=== PATIENT | female | born 1960 | race Caucasian/White ===

== ENCOUNTER 2020-06-14 08:43 | Day surgery (SDC) | payer OTHER, SELFPAY ==
--- NOTE | 2020-06-13 15:30 | HP_ITS ---
DATE OF SERVICE: 06/14/2020 PLANNED DATE OF PROCEDURE: June 14, 2020. PREOPERATIVE DIAGNOSES: 1. Painful skin disease, left foot. 2. Hammertoe, left second toe. 3. Ganglion cyst, left foot. PLANNED PROCEDURES: 1. Excision of painful skin. 2. Hammertoe repair, left second toe. 3. Excision of ganglion cyst left foot. PLANNED ANESTHESIA: Local anesthesia. CHIEF COMPLAINT AND HISTORY OF PRESENT ILLNESS: Lisa Payan is a 60-year-old female, who relates history of painful ganglion cyst, hammertoe and skin of the left second toe and right 3rd toe. The left second toe is much more severe than the right foot. The pain is aggravated by shoe gear and walking activity. The condition has been present over the past several years and has progressively worsened. The patient has drained the fluid from the cysts both herself and also had a drain by another physician in the past. Unfortunately, the condition continues to recur despite conservative care of altered shoe gear and accommodative padding. The patient is now requesting surgical treatment. PAST MEDICAL HISTORY: Remarkable for hypertension, polyps of colon, cyst on right kidney, and history of skin cancer as well as asthma. CURRENT MEDICATIONS: Advair, acidophilus, Aczone, ibuprofen p.r.n., omeprazole, valsartan, hydrochlorothiazide. ALLERGIES: THE PATIENT RELATES NEGATIVE REACTION TO PERCOCET, DEMEROL, DIMETAPP, SUCCINYLCHOLINE. FAMILY HISTORY: Significant for hypertension, arthritis, CVA. SOCIAL HISTORY: The patient denies smoking, denies use of any recreational drugs. The patient does drink 1 to 2 cups of coffee per day. She relates minimal alcohol use. PODIATRIC PHYSICAL EXAMINATION: VASCULAR EXAM: The patient displays normal pulses, the DP and PT arteries bilateral with normal capillary refill time noted bilateral feet. NEUROLOGIC EXAM: Reveals pain on palpation, dorsum of left second toe, distal interphalangeal joint, and otherwise intact sensation. DERMATOLOGIC EXAM: Reveals painful skin lesion with underlying ganglion cyst/mucous cyst, dorsum of left second toe, distal interphalangeal joint. ORTHOPEDIC EXAM: Reveals hammertoe contracture, bilateral second through fifth toes. The patient was seen most recently in my office on June 08, 2020. Preoperative informed consent was obtained from the patient that day for her planned left foot surgery. MOJGAN Hernandez/CHOLO / [id number]
[2020-06-14 09:05] VITALS: BMI 27.8
[2020-06-14 09:09] VITALS: BP 130/86; PULSE 95; RESP 18; TEMP 36.4; O2SAT 99
--- NOTE | 2020-06-14 10:32 | MHC.SHP ---
Pre-Procedural Eval Section A The patient is an INPATIENT: No Changes since office visit: No Cold of Flu in the past 2 weeks, No New Medical Problems, No Changes in Medication and No Patient answered all questions The History & Physical has been completed within 30 days and I have reviewed it.: Yes Section B Chief Complaint: Toya Details of Present Illness: hammertoe left 3rd Relevant Family History (Specify if Yes): No Relevant Social History: None Present Medications: None Allergies: Allergies Allergy/AdvReac Type Severity Reaction Status Date / Time acetaminophen [From PERCOCET] Allergy Unknown VOMITING Unverified 04/26/20 19:00 meperidine [From DEMEROL] Allergy Unknown CARDIAC Unverified 04/26/20 19:00 ARREST morphine [MORPHINE] Allergy Unknown ITCHINESS Unverified 04/26/20 19:00 AND HIVES oxycodone [From PERCOCET] Allergy Unknown VOMITING Unverified 04/26/20 19:00 succinylcholine AdvReac Severe PARALYSIS Verified 06/14/20 09:18 brompheniramine AdvReac Mild Drowsy Verified 06/14/20 09:19 [From Dimetapp Cold-Allergy (PE)] phenylephrine AdvReac Mild Drowsy Verified 06/14/20 09:19 [From Dimetapp Cold-Allergy (PE)] Plan Diagnosis/Plan: Unchanged Patient has been examined and remains a candidate for the planned procedure
--- NOTE | 2020-06-14 11:17 | PM.OP ---
Brief Operative Note Date of procedure: 06/14/20 Pre-op diagnosis: hammertoe left second, ganglion cyst left foot and skin disease left foot Post-op diagnosis: same Procedure: hammertoe repair left second, excision of skin 1.8cm, and excision of ganglion cyst left foot Surgeon: Nigel Amezcua Anesthesia: local Estimated blood loss (mL): 0.5 Condition: stable
[2020-06-14 11:18] VITALS: BP 139/82; PULSE 84; RESP 18; TEMP 36.3; O2SAT 96
[2020-06-14 11:33] VITALS: BP 132/66; PULSE 79; RESP 16; TEMP 36.6; O2SAT 98
--- NOTE | 2020-06-14 12:08 | OP_ITS ---
SURGEON: Nigel Amezcua DPM PREOPERATIVE DIAGNOSIS: POSTOPERATIVE DIAGNOSIS: PROCEDURE PERFORMED: ESTIMATED BLOOD LOSS: COMPLICATIONS: ANESTHESIA: Consisted of local administration of a total of 3 mL of 2% lidocaine with epinephrine 1:200,000. ASSISTANTS: SPECIMENS: PREOPERATIVE DIAGNOSES: 1. Skin disease, left foot. 2. Hammertoe, left second toe. 3. Ganglion cyst, left foot. POSTOPERATIVE DIAGNOSES: 1. Skin disease, left foot. 2. Hammertoe, left second toe. 3. Ganglion cyst, left foot. PROCEDURES PERFORMED: 1. Excision of skin lesion, 1.8 cm. 2. Hammertoe repair, left second toe. 3. Excision of a ganglion cyst. BEAUTICIAN APPRENTICE SURGEON: Yoli Wallace DPM INTRODUCTION: The patient was brought to the operating room and placed on the operating table in supine position. After having been suitably anesthetized with local infiltrative anesthesia, the left lower extremity was then prepped and draped in usual sterile manner. Excision of skin as well as excision of ganglion cyst, left foot: Attention was directed to the dorsum of the left second toe, where two converging semi-elliptical incisions were placed transversely to excise diseased skin as well as a superficial mucous ganglion cyst, dorsum left second toe, distal interphalangeal joint. The incisions were deepened in same plane and the ellipse of skin was excised from the wound in toto. Hammertoe repair, left second toe: Attention was now directed to the dorsum of the left second toe distal interphalangeal joint, where a transverse incision was effected through the extensor tendon complex at the level of the distal interphalangeal joint. The extensor tendon was underscored and retracted. The hypertrophic head of middle phalanx was exposed from the wound and then excised utilizing power sagittal saw. The hypertrophic bone from the base of the middle phalanx and base of the distal phalanx was then resected utilizing bone cutting forceps. The wound was irrigated. The extensor tendon was coapted and maintained utilizing 3-0 Dexon. The skin margins were closed with 4-0 nylon. CONCLUSION: At the conclusion of these procedures, the operative site was dressed with sterile Xeroform, Betadine-soaked gauze. The surgical field was injected with 2 mL of Marcaine 0.5% plain and 1 mL of dexamethasone phosphate. The patient tolerated the surgery and anesthesia well and left the operating room via cart to the recovery room with vital signs stable. FINAL DISPOSITION: The patient is discharged to home with instructions for self-care and include the followin. To keep the dressings dry, clean, and intact. 2. To keep the left leg elevated with ice to the ankle. 3. Take all medications as prescribed. 4. To limit activity to minimum. 5. To always use surgical shoe when ambulating. 6. The patient has prescriptions for Keflex 500 mg, total number of 20, take one p.o. b.i.d.; ibuprofen 800 mg, take one p.o. t.i.d.; and lastly Diflucan 200 mg one daily for five days. MOJGAN Hernandez/CHOLO / [id number]
== END 2020-06-14 23:59 | disposition home or self-care (01) ==
PROVIDERS: PCP Family Medicine; Visit Provider Podiatrist
PROC: (CPT 28285; principal; 2020-06-14 10:10)
DX: L98.9 Disorder of the skin and subcutaneous tissue, unspecified (principal); M20.42 Other hammer toe(s) (acquired), left foot; M67.472 Ganglion, left ankle and foot; I10 Essential (primary) hypertension; J45.909 Unspecified asthma, uncomplicated; Z85.828 Personal history of other malignant neoplasm of skin; Z79.51 Long term (current) use of inhaled steroids; Z79.899 Other long term (current) drug therapy; Z88.8 Allergy status to other drugs, medicaments and biological substances
CPT/HCPCS: 28285; 28090; 11422; 88304; 88305; 88311; J1100

== ENCOUNTER 2024-07-26 09:27 | Outpatient (AMB) | payer OTHER, SELFPAY ==
--- NOTE | 2024-07-26 09:36 | A.OFFVIS_ITS ---
Vital Signs 07/26/24 09:37 Height 5 ft 3.5 in Weight 164 lb 14.492 oz BMI 28.8 BP 118/74 Blood Pressure Location Lt brachial Position Sitting Pulse 114 H Pulse Source Pulse Oximeter Pulse Oximetry (%) 96 Oxygen Delivery Method Room Air Intake Visit Reasons: Raynauds Intake Note: Patient presents follow up on Raynauds and arthritis today. Allergies metoclopramide [From Reglan] Allergy (Mild, Verified 07/26/24 09:40) unable to breathe acetaminophen [From PERCOCET] Allergy (Unknown, Unverified 04/26/20 19:00) VOMITING meperidine [From DEMEROL] Allergy (Unknown, Unverified 04/26/20 19:00) CARDIAC ARREST morphine [MORPHINE] Allergy (Unknown, Unverified 04/26/20 19:00) ITCHINESS AND HIVES oxycodone [From PERCOCET] Allergy (Unknown, Unverified 04/26/20 19:00) VOMITING succinylcholine Adverse Reaction (Severe, Verified 06/14/20 09:18) PARALYSIS brompheniramine [From Dimetapp Cold-Allergy (PE)] Adverse Reaction (Mild, Verified 06/14/20 09:19) Drowsy phenylephrine [From Dimetapp Cold-Allergy (PE)] Adverse Reaction (Mild, Verified 06/14/20 09:19) Drowsy HPI HPI Raynauds: Details: Raynaud's is currently controlled. She has not been out much. She has amlodipine at home if she needs to use it when Raynaud's is active. Right hand pain has gotten worse. She is having difficulty using her hand. [facility] Social History Second Hand Smoke Exposure: No Physical Exam Vital Signs: Last Vital Signs Pulse 114 H 07/26/24 09:37 BP 118/74 07/26/24 09:37 Pulse Ox 96 07/26/24 09:37 Oxygen Delivery Method Room Air 07/26/24 09:37 BMI result Body Mass Index 28.8 Const Other: General: Comfortable Skin: No lesions seen MSK: No discoloration of fingertips. Good capillary refill. Right CMC tenderness with palpation. Squaring of right CMC present. Office Procedures AMB Joint Injection/Aspiration Joint Injection/Aspiration Details: Right CMC joint Prep: site was prepped using aseptic technique Injected: 10 mg of, Kenalog, with 0.25 mL of and 1% plain lidocaine Procedure: The patient tolerated the procedure well Coding 19052 - Small Joint Procedure code (CPT) selection complete Office Meds Kenalog 40 mg/mL suspension for injection Performing Provider: Dashawn Ribeiro MD Performing Location: [facility] [place] [facility] Administered by: Dashawn Ribeiro MD on 07/26/24 21:40 Dose Route Admin Location Dispensed Lot Number Expiration Date [facility] Dim[employer] Supervisor 10 mg intra-articular 1 mL AP [id number] [employer] lidocaine (PF) 10 mg/mL (1 %) injection solution Performing Provider: Dashawn Ribeiro MD Performing Location: [facility] [place] [facility] Administered by: Dashawn Ribeiro MD on 07/26/24 21:40 Dose Route Admin Location Dispensed Lot Number Expiration Date [facility] [employer] Supervisor 2.5 mg Infiltration 2 mL [id number] [facility] Assessment & Plan Assessment & Plan (1) Arthritis of carpometacarpal (CMC) joint of right thumb: Comment: Right CMC pain is uncontrolled. Code(s): M18.11 - Unilateral primary osteoarthritis of first carpometacarpal joint, right hand Category: Medical Plan: Right CMC cortisone injection given [facility] Return to clinic in 3 months (2) Raynaud disease without gangrene: Comment: Controlled at this time with conservative management. Code(s): I73.00 - Raynaud's syndrome without gangrene Category: Medical Plan: Continue conservative management She will call office if she has a flare. She has amlodipine at home to use if Raynaud's becomes active. I will then need to send her prescription for maintenance treatment. Return to clinic in 3 months Orders: Orders AMB Joint Injection/Aspiration Today M18.11 - Unilateral primary osteoarthritis of first carpometacarpal joint, right hand Medications: New Kenalog (triamcinolone acetonide) 10 mg (0.25 mL) intra-articular ONCE 0.25 mL 0RF NS M18.11 - Unilateral primary osteoarthritis of first carpometacarpal joint, right hand lidocaine (PF) 2.5 mg (0.25 mL) Infiltration ONCE 0.25 mL 0RF M18.11 - Unilateral primary osteoarthritis of first carpometacarpal joint, right hand Coding Level of Care Code Est Pt Level 3 (24046) Complex EM visit Add On G2211 Diagnoses Arthritis of carpometacarpal (CMC) joint of right thumb M18.11 Raynaud disease without gangrene I73.00 CPT Codes Coding - - Small joint: - Small Joint ([id number])
[2024-07-26 09:37] VITALS: BP 118/74; PULSE 114; O2SAT 96; BMI 28.8
== END 2024-07-26 10:18 | disposition home or self-care (01) ==
PROVIDERS: PCP Family Medicine; Visit Provider Internal Medicine Rheumatology
DX: M18.11 Unilateral primary osteoarthritis of first carpometacarpal joint, right hand (principal); I73.00 Raynaud's syndrome without gangrene
CPT/HCPCS: 20600; 99213

== ENCOUNTER 2024-10-25 09:06 | Outpatient (REF) | payer OTHER, SELFPAY ==
--- NOTE | ~2024-10-25 | XR_ITS ---
EXAMINATION: XR FOOT, RIGHT CLINICAL INFORMATION: M79.673 - Pain in unspecified foot COMPARISON: None available. TECHNIQUE: AP, lateral, and oblique views of the right foot. FINDINGS: No acute cortical disruption or malalignment. No lytic or blastic lesions. No metallic or radiopaque foreign body. No subcutaneous emphysema. XR/XR foot RT min 3V IMPRESSION: No acute fracture or dislocation. Negative x-ray. Electronically signed by: Gab Cifuentes MD 10/25/2024 12:26 PM EDT
--- NOTE | ~2024-10-25 | XR_ITS ---
EXAMINATION: XR FOOT, LEFT CLINICAL INFORMATION: M79.673 - Pain in unspecified foot COMPARISON: None available. TECHNIQUE: AP, lateral, and oblique views of the left foot. FINDINGS: No acute cortical disruption or malalignment. No lytic or blastic lesions. No subcutaneous emphysema. No metallic or radiopaque foreign body. Small spur, calcaneus plantar surface. XR/XR foot LT min 3V IMPRESSION: No acute fracture or dislocation. Small spur, plantar calcaneus surface. Electronically signed by: Gab Cifuentes MD 10/25/2024 12:34 PM EDT
--- OUTSIDE RECORDS SUMMARY | 2024-10-25 13:58 | XMS_ITS | Encounter Summary ---
Author Organization [facility] Address [address] [place] [address] [place] [address] Phone Care Team Providers Care Metal Cut Off Saw Tender Name Role Phone Pilar Aviles MD Primary Care Provider Encounter Details Date Type Department Care Team (Late st Contact Info) Description 12/17/2017 Ancillary Orders [facility] Xray - [place] [address] [place] [phone] Jeet Kelly DO [address] [place] [address] Orthopedics & Sports Medicine, [place] [address] [email or web address] Left hip pain Social History Tobacco Use [...] thigh documented in this encounter Care Teams Metal Cut Off Saw Tender Relationship Specialty Start Date End Date Pilar Aviles MD [address] [place] [address] PCP - General 08/13/17 documented as of this encounter Additional Source Comments The information contained in this document represents components of the legal health record. It is not the complete legal health record.[facility]
--- OUTSIDE RECORDS SUMMARY | 2024-10-25 13:58 | XMS_ITS | Encounter Summary ---
Author Organization [facility] Address [address] [place] [address] [place] [address] Phone Care Team Providers Care Elevator Repair Mechanic Name Role Phone Pilar Aviles MD Primary Care Provider Encounter Details Date Type Department Care Team (Late st Contact Info) Description 12/17/2017 Ancillary Orders [facility] Orthopedics [facility] Sports Medicine [address] [place] [address] Jeet Kelly DO [address] [facility] [place] [address] Social History Tobacco Use Types Packs/Day Years Used Date Smoking Tobacco: Never Assessed Sex and Gender Information Value Date Recorded Sex Assigned at Not on file Gender Identity Not on file Sexual Orientation Not on file documented as of this encounter Plan of Treatment Not on file documented as of this encounter Visit Diagnoses Not on filedocumented in this encounter Care Teams Elevator Repair Mechanic Relationship Specialty Start Date End Date Pilar Aviles MD [address] [place] [address] PCP - General 08/13/17 documented as of this encounter Additional Source Comments The information contained in this document represents components of the legal health record. It is not the complete legal health record.[facility]
--- OUTSIDE RECORDS SUMMARY | 2024-10-25 13:59 | XMS_ITS | Encounter Summary ---
Author Organization [facility] Address [address] [place] [address] Phone Care Team Providers Care Spiritual Advisor Name Role Phone Pilar Aviles MD Primary Care Provider Encounter Details Date Type Department Care Team (Late st Contact Info) Description 11/04/2021 Ancillary Orders [facility],Outside Imaging [address] [place] [address] System, Provider Not In, [place] [address] Social History Tobacco Use Types Packs/Day Years [...] on filedocumented in this encounter Care Teams Spiritual Advisor Relationship Specialty Start Date End Date Pilar Aviles MD [address] [place] [address] PCP - General 08/13/17 documented as of this encounter Additional Source Comments The information contained in this document represents components of the legal health record. It is not the complete legal health record.[facility]
--- OUTSIDE RECORDS SUMMARY | 2024-10-25 13:59 | XMS_ITS | Encounter Summary ---
Author Organization [facility] Address [address] [place] [address] Phone Care Team Providers Care Daycare Director Name Role Phone Pilar Aviles MD Primary Care Provider Encounter Details Date Type Department Care Team (Late st Contact Info) Description 11/04/2021 Ancillary Orders [facility],Outside Imaging [address] [place] [address] System, Provider Not In, [place] [address] Social History Tobacco Use Types Packs/Day Years [...] on filedocumented in this encounter Care Teams Daycare Director Relationship Specialty Start Date End Date Pilar Aviles MD [address] [place] [address] PCP - General 08/13/17 documented as of this encounter Additional Source Comments The information contained in this document represents components of the legal health record. It is not the complete legal health record.[facility]
--- OUTSIDE RECORDS SUMMARY | 2024-10-25 13:59 | XMS_ITS | Clinical Summary ---
Author Organization [facility] Address [address] [place] [address] Phone Care Team Providers Care Crank Hand Name Role Phone Pilar Aviles MD Primary [...] 03/20/21 14:36:00 EDT, Inhaler, [id number], Partial fill upon patient request if the [...] this topic Medical Devices Implanted Type Area Discount Clerk Device Identifier Shelf Expiration Date Model / Serial / Lot [place] Suture 4.5mm Arthroscopy Reelx Stt Peek Ss Core Knotless Shapr Tip Expandable Bx/5ea - [id number] Implanted:Qty: 1 on 11/14/2021 by Jeet Kelly DO at [facility] Right: Shoulder [employer] 01/14/2023 [id number] / / [id number] Care Teams Crank Hand Relationship Specialty Start Date End Date Pilar Aviles MD [address] [place] [address] Blanca PCP - General 08/13/17 Additional Source Comments The information contained in this document represents components of the legal health record. It is not the complete legal health record.[facility]
--- OUTSIDE RECORDS SUMMARY | 2024-10-25 13:59 | XMS_ITS | Clinical Summary ---
Author Organization [facility] Address [address] [place] [address] Phone Care Team Providers Care Service Correspondent Name Role Phone Pilar Aviles MD Primary Care Provider [phone] Encounters Date Type Department Care Team Description 09/07/2024 Telephone Gastroenterology - [address] [phone] Kirsten Perez MA from Last 3 Months Surgical History Surgery Date Site/Laterality Comments HYSTERECTOMY PROCEDURE: HISTORICAL HYSTERECTOMY SECTION PROCEDURE: UT DELIVERY ONLY OTHER SURGICAL HISTORY Right PROCEDURE: ---- OTHER ----; COMMENT: hip OTHER SURGICAL HISTORY Left PROCEDURE: ---- OTHER ----; COMMENT: jaw replacement OTHER SURGICAL HISTORY Bilateral PROCEDURE: ---- OTHER ----; COMMENT: breast reconstruction OTHER SURGICAL HISTORY PROCEDURE: ARTHROSCOPY PROCEDURE NEC CHOLECYSTECTOMY PROCEDURE: UT LAPAROSCOPY SURG CHOLECYSTECTOMY Social History Tobacco Use [...] age to complete this topic Care Teams Service Correspondent Relationship Specialty Start Date End Date Pilar Aviles MD [address] [facility] [place] [address] PCP - General Family Medicine 04/14/19
--- OUTSIDE RECORDS SUMMARY | 2024-10-25 13:59 | XMS_ITS | Encounter Summary ---
Author Organization [facility] Address [address] [place] [address] Phone Care Team Providers Care Bursar Name Role Phone Pilar Aviles MD Primary Care Provider Encounter Details Date Type Department Care Team (Late st Contact Info) Description 11/14/2021 Procedure Pass OR Admitting Dept - Virtual Department [address] [place] [address] Social History Tobacco Use Types Packs/Day Years [...] on filedocumented in this encounter Care Teams Bursar Relationship Specialty Start Date End Date Pilar Aviles MD [address] [place] [address] PCP - General 08/13/17 documented as of this encounter Additional Source Comments The information contained in this document represents components of the legal health record. It is not the complete legal health record.[facility]
--- OUTSIDE RECORDS SUMMARY | 2024-10-25 13:59 | XMS_ITS | Data Portability ---
Author Organization [facility], [facility] Address [address] [place] [address] Assessment No assessment recorded. Plan of Treatment Reminders Order Date Submit Date Provider Last Modified By Organization Details Last Modified Time Details Appointments None record ed. Lab None record ed. Referral None record ed. Procedures None record ed. Surgeries None record ed. Imaging None record ed. Medication Orders None record ed. Patient TargetsNo targets recorded. Patient InstructionsNo instructions recorded. Reason for Referral None Reported. Results Created Date Observation Date Name Description Value Unit Range Abnormal Flag Note LastModifiedBy Organization Detail LastModifiedTime 04/08/2006/04/2023 imagi ng/di agnos tic resul t No observ ation record ed. [email or web address] Not Available 03/12 11:48:26 04/08/2006/04/2023 imagi ng/di agnos tic resul t No observ ation record ed. [email or web address] Not Available 03/12 11:48:27 Result Notes None recorded. Problems Name Problem SNOMED Code Status Onset Date Resolution Date Notes Provider Name and Address Organization Details Recorded Time Pain in right hip joint [id number] Active 2022 Status : 'A'; Not Available [facility] 11:14:08 Problem Notes None recorded. Procedures Surgical History None recorded. Imaging Results Imaging Date Name Status LastModified by [facility] Details LastModified Time 06/04/2023 imaging/diag nostic result completed Information not available 04/08/2024 11:48:26 06/04/2023 imaging/diag nostic result completed Information not available 04/08/2024 11:48:27 Procedure Notes None recorded. Medical Equipment None Reported. Allergies Allergen ID Allergen Name Allergen Category Reaction Reaction Severity Criticality Documentation Date Start Date Code Code System Note Provider Name and Address Organization Details Recorded Time 19599 Demerol medicatio n Not available Not available Not available 10/12/20232022 43425 1 RxNorm Not Available [facility] 13:52:07 88914 acetamino phen / oxycodone medicatio n Not available Not available Not available 10/12/20232022 30072 3 RxNorm Not Available [facility] 13:52:07 Medications Name Sig Start Date Stop Date Status Note LastModified by Organization Details LastModified Time amoxicillin 500 mg capsule TAKE 4 CAPSULES BY MOUTH 1 HOUR BEFORE PROCEDURE active Not Available Not Available No t Available ipratropium 0.5 mg-albutero l 3 mg (2.5 mg base)/3 mL nebulizatio n soln INHALE 3 ML VIA NEBULIZER FOUR TIMES DAILY FOR 7 DAYS active Not Available Not Available No t Available albuterol sulfate 2.5 mg/3 mL (0.083 %) solution for nebulizatio n INHALE 3ML VIA NEBULIZER EVERY 6 HOURS FOR UP TO 30 DAYS active Not Available Not Available No t Available azithromyci n 250 mg tablet 02/17 completed Not Available Not Available Not Available fluconazole 150 mg tablet TAKE 1 TABLET BY MOUTH 1 TIME active Not Available Not Available No t Available valacyclovi r 1 gram tablet TAKE 1 TABLET BY MOUTH THREE TIMES DAILY FOR 7 DAYS active Not Available Not Available No t Available phenazopyri dine 200 mg tablet TAKE 1 TABLET BY MOUTH TWICE DAILY FOR 3 DAYS 02/17 completed Not Available Not Available Not Available ondansetron HCl 4 mg tablet TAKE 1 TABLET BY MOUTH EVERY 8 HOURS FOR 14 DAYS 02/17 completed Not Available Not Available Not Available prednisone 20 mg tablet active Not Available Not Available Not Available betamethaso ne, augmented 0.05 % topical cream APPLY TOPICALLY TO THE AFFECTED AREA TWICE DAILY FOR 14 DAYS active Not Available Not Available No t Available doxycycline monohydrate 100 mg tablet TAKE 1 TABLET BY MOUTH TWICE DAILY FOR 7 DAYS active Not Available Not Available No t Available tramadol 50 mg tablet TAKE 1 TABLET BY MOUTH EVERY 8 HOURS 07/11 /2024 completed Not Available Not Available Not Available amoxicillin 500 mg tablet TAKE 1 TABLET BY MOUTH THREE TIMES DAILY FOR 10 DAYS 02/17 completed Not Available Not Available Not Available valsartan 80 mg-hydrochl orothiazide 12.5 mg tablet TAKE 1 TABLET BY MOUTH DAILY active Not Available Not Available No t Available alprazolam 0.5 mg tablet TAKE 1 TABLET BY MOUTH TWICE DAILY NEEDED FOR ANXIETY active Not Available Not Available No t Available hydromorpho ne 2 mg tablet TAKE 2 TABLETS BY MOUTH EVERY 4 HOURS NEEDED FOR PAIN active Not Available Not Available No t Available cephalexin 500 mg capsule TAKE 1 CAPSULE BY MOUTH THREE TIMES DAILY FOR 7 DAYS active Not Available Not Available No t Available tobramycin 0.3 % eye drops INSTILL 1 DROP IN BOTH EYES FOUR TIMES DAILY FOR 7 DAYS 02/17 completed Not Available Not Available Not Available albuterol sulfate HFA 90 mcg/actuati on aerosol inhaler INHALE 2 PUFFS BY MOUTH EVERY 4 HOURS NEEDED active Not Available Not Available No t Available dicyclomine 10 mg capsule TAKE 1 CAPSULE BY MOUTH FOUR TIMES DAILY NEEDED FOR ABDOMINAL DISCOMFOR T active Not Available Not Available No t Available amoxicillin 875 mg-potassiu m clavulanate 125 mg tablet TAKE 1 TABLET BY MOUTH EVERY 12 HOURS FOR 7 DAYS active Not Available Not Available No t Available valsartan 160 mg-hydrochl orothiazide 25 mg tablet TAKE 1 TABLET BY MOUTH DAILY. REPLACES AMLODIPIN E 02/17 completed Not Available Not Available Not Available amoxicillin -potassium clavulanate 1,000 mg-62.5 mg tablet,ext. rel 12hr TAKE 2 TABLETS BY MOUTH TWICE DAILY FOR 10 DAYS 02/17 completed Not Available Not Available Not Available fentanyl 12 mcg/hr transdermal patch APPLY 1 PATCH TOPICALLY TO THE SKIN EVERY 72 HOURS active Not Available Not Available No t Available dapsone 5 % topical gel APPLY TOPICALLY TO FACE DAILY FOR ACNE active Not Available Not Available No t Available Eliquis 2.5 mg tablet TAKE 1 TABLET BY MOUTH TWO TIMES A DAY 02/17 completed Not Available Not Available Not Available potassium chloride ER 20 mEq tablet,exte nded release TAKE 1 TABLET BY MOUTH TWICE DAILY active Not Available Not Available No t Available Wixela Inhub 250 mcg-50 mcg/dose powder for inhalation active Not Available Not Available N ot Available Vitals Date Recorded Body height Body mass index (BMI) Body weight Provider Name and Address Organization Details Last Updated DateTime 02/18/2024 154.94 cm 30.2 kg/m2 33135.78 g Jevon Scott [place] [facility] 02/18/2024 15:48:26 Social History None recorded. Functional Status None recorded. Mental Status None recorded. Family History Nothing Reported. Medical History No medical history recorded. Gynecological HistoryNo gynecological history recorded. Obstetrics History GPAL:G 0 P 0 0 0 0 Past Encounters Encounter ID Performer Location Encounter Start Date Encounter Closed Date Diagnosis/Indication Diagnosis SNOMED-CT Code Diagnosis ICD10 Code Diagnosis Note [id number] KAROL Leyva [address] [place] [address] 02/18/2024 15:36:43 03/09/2024 12:51:00 Hip joint prosthesis present [id number] Z96.641 Thigh pain 96408566 M79. 651 Health Concerns Section Related Observation LastModified by Organization Detai ls LastModified Time None Recorded Concern Status LastModified by Organization Details LastModified Time None Recorded Advance Directives Directive None Recorded Payers Encounter Date Sequence Insurance Name Policy Number Policy Graves Covered Member ID Graves Member ID Guarantor Name 02/18/2024 1 [facility] [id number] Lisa Payan [id number] Lisa Payan Notes Date Note Type Note Provider Name and Address Organization Details Recorded Time 02/18/2024 text/html I am seeing the patient today under the supervision of Dr. Ruvalcaba who was available but who did not see the patient. HPI: presents to the office today for a recheck of her right hip. She is approximately 1 year status post right anterior total hip arthroplasty. She developed an atraumatic onset of severe burning pain in the right thigh last Thursday. When her symptoms increased over the weekend she went to the emergency department. While there she had a CT scan and Doppler ultrasound performed. Both of these scans were negative for acute pathology. She denies increased pain with weightbearing activities. There is no instability of the hip joint. She went to the bathroom here at the office prior to her appointment and noticed that she now has a rash on her thigh. She believes she may have shingles. PMH/PSH/MEDS/ALL/FMH/S OC HX/ROS are reviewed in detail per my medical intake sheet. General Exam: Vital signs are as noted below Mental status: Alert and lucid. Normal insight, affect and grooming. 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 No spasticity or clonus noted. EXAMINATION: The patient is well appearing and in no apparent distress. Alert and oriented x3. Gait is symmetric. {{Right* Left}} hip reveals a surgical scar, otherwise no obvious deformity upon inspection. No edema, erythema, ecchymosis. There is a faint raised red rash developing over the anterior thigh. No blisters. Neurovascularly intact. No localized tenderness. ROM is pain-free. Negative straight leg raise. No instability. 5/5 strength. Calf/leg compartments soft and compressible. CT scan performed of the right hip at [facility] this past weekend has been independently reviewed. Images reveal total hip arthroplasty components to be in good position. No evidence of loosening or an acute fracture. IMPRESSION: Right thigh pain, likely secondary to shingles, status post total hip arthroplasty PLAN: Clinically and radiographically the patient's hip replacement looks great today. She likely has an outbreak of shingles. She has had shingles in the past and indicates she has medication at home for this issue. I suggested that she call her PCP or go to an urgent care to confirm that she has shingles. If the burning pain in her thigh persists and she does not have shingles, she will call the office. All questions answered. Lisa Bernal PA-C [address], [place], [address], [facility] - [facility] 02/18/2024 22:42:23 OBGyn Episode No OBEpisode recorded.
== END 2024-10-25 09:07 | disposition home or self-care (01) ==
LOC: HO.HMGCX 09:06
PROVIDERS: PCP Family Medicine; Visit Provider Internal Medicine Rheumatology
DX: M79.671 Pain in right foot (principal); M79.672 Pain in left foot; M18.11 Unilateral primary osteoarthritis of first carpometacarpal joint, right hand; I73.00 Raynaud's syndrome without gangrene
CPT/HCPCS: 73630

== ENCOUNTER 2024-10-25 09:06 | Outpatient (AMB) | payer OTHER, SELFPAY ==
--- NOTE | 2024-10-25 09:11 | MHC.OFFVIS ---
Vital Signs 10/25/24 09:13 Height 5 ft 3.5 in Weight 161 lb 13.109 oz BMI 28.2 BP 120/74 Blood Pressure Location Lt brachial Position Sitting Pulse 104 H Pulse Source Pulse Oximeter Pulse Oximetry (%) 98 Oxygen Delivery Method Room Air Intake Visit Reasons: 3 mo follow up Intake Note: Patient presents follow up on Raynauds and arthritis today. Allergies metoclopramide [From Reglan] Allergy (Mild, Verified 10/25/24 09:11) unable to breathe acetaminophen [From PERCOCET] Allergy (Unknown, Verified 10/25/24 09:11) VOMITING meperidine [From DEMEROL] Allergy (Unknown, Verified 10/25/24 09:11) CARDIAC ARREST morphine [MORPHINE] Allergy (Unknown, Verified 10/25/24 09:11) ITCHINESS AND HIVES oxycodone [From PERCOCET] Allergy (Unknown, Verified 10/25/24 09:11) VOMITING succinylcholine Adverse Reaction (Severe, Verified 10/25/24 09:11) PARALYSIS brompheniramine [From Dimetapp Cold-Allergy (PE)] Adverse Reaction (Mild, Verified 10/25/24 09:11) Drowsy phenylephrine [From Dimetapp Cold-Allergy (PE)] Adverse Reaction (Mild, Verified 10/25/24 09:11) Drowsy HPI HPI 3 mo follow up: Details: Last thursday she had acute pain in left foot. She was unable to bear weight on her foot. She used arch support and diclofenac gel with benefit. She is unable to ambulate barefoot. She has to wear support. Pain has reduced in intensity. In November of 2020 she woke up with acute right foot pain and was unable to bear weight on her feet. She had x-rays that did not reveal stress fracture. On the same day of her x-ray she had an MRI of her right foot, which confirmed stress fracture. Subsequently, she had surgery. Denies active Raynaud's No new joint swelling. Denies pain in hands. PFSH Social History Second Hand Smoke Exposure: No Physical Exam Vital Signs: Last Vital Signs Pulse 104 H 10/25/24 09:13 BP 120/74 10/25/24 09:13 Pulse Ox 98 10/25/24 09:13 Oxygen Delivery Method Room Air 10/25/24 09:13 BMI result Body Mass Index 28.2 Const Other: General: Comfortable Skin: No lesions seen or discoloration of fingertips. No digital ulcers. MSK: Squaring of right CMC present without tenderness. No synovitis. Normal range of motion of upper extremities. Left MTP tenderness with increased intensity localized to 3rd MTP. No swelling or soft tissue edema. Assessment & Plan Assessment & Plan (1) Foot pain: Comment: Acute left foot pain with inability to bear weight on her foot initially, improved with arch support and diclofenac gel. In the past November of 2020 she had acute right foot pain with similar presentation eventually diagnosed with stress fracture. I will be ordering x-rays of bilateral feet with stat read. She had x-ray June 2023 of bilateral feet, which [facility]. Code(s): M79.673 - Pain in unspecified foot Category: Medical Qualifiers: Laterality: left Qualified Code(s): M79.672 - Pain in left foot Plan: Bilateral foot x-rays ordered I may consider MRI left foot to rule out stress fracture depending on x-ray results Continue foot support with insoles She will continue to use diclofenac gel 1% applied to affected area as needed Contraindication to oral NSAIDs due to prior history of GI perforation Return to clinic in 1 month (2) Arthritis of carpometacarpal (CMC) joint of right thumb: Comment: Right CMC pain is controlled with last cortisone injection Code(s): M18.11 - Unilateral primary osteoarthritis of first carpometacarpal joint, right hand Category: Medical Plan: Return to clinic in 3 month (3) Raynaud disease without gangrene: Comment: Controlled at this time with conservative management. Normotensive. Code(s): I73.00 - Raynaud's syndrome without gangrene Category: Medical Plan: Continue conservative management She will call office if she has a flare. She has amlodipine at home to use if Raynaud's becomes active. I will then need to send her prescription for maintenance treatment. Return to clinic in 3 months Orders: Orders XR foot RT min 3V Today M79.673 - Pain in unspecified foot XR foot LT min 3V Today M79.673 - Pain in unspecified foot Coding Level of Care Code Est Pt Level 4 (46028) Complex EM visit Add On G2211 Diagnoses Left foot pain M79.672 Laterality: left Arthritis of carpometacarpal (CMC) joint of right thumb M18.11 Raynaud disease without gangrene I73.00
[2024-10-25 09:13] VITALS: BP 120/74; PULSE 104; O2SAT 98; BMI 28.2
--- OUTSIDE RECORDS SUMMARY | 2024-10-25 09:45 | XMS_ITS | Encounter Summary ---
Author Organization [facility] Address [address] [place] [address] [place] [phone] Phone Care Team Providers Care Automatic Steel Tie Adjuster Name Role Phone Pilar Aviles MD Primary Care Provider Encounter Details Date Type Department Care Team (Late st Contact Info) Description 12/17/2017 Ancillary Orders [facility] [address] [place] [id number] Jeet Kelly DO 4 [facility] [place] [address] Social History Tobacco Use Types Packs/Day Years Used Date Smoking Tobacco: Never Assessed Sex and Gender Information Value Date Recorded Sex Assigned at Not on file Gender Identity Not on file Sexual Orientation Not on file documented as of this encounter Plan of Treatment Not on file documented as of this encounter Visit Diagnoses Not on filedocumented in this encounter Care Teams Automatic Steel Tie Adjuster Relationship Specialty Start Date End Date Pilar Aviles MD [address] [place] [id number] PCP - General 08/13/17 documented as of this encounter Additional Source Comments The information contained in this document represents components of the legal health record. It is not the complete legal health record.[facility]
--- OUTSIDE RECORDS SUMMARY | 2024-10-25 09:45 | XMS_ITS ---
Author Organization [facility] Address [address] [place] [address] Care Team Providers Care Web Ui Developer Name Role Phone Traci BURKETT Pilar Primary Care Provider Nigel Muñoz Unavailable [phone] Allergies Allergen (clinical drug ingredient) Drug/Non Drug Allergy documented on EMR Reaction Allergy Type Onset Date Status meperidine Demerol Unknown Drug Allergy Active Dimetapp ND Unknown Drug Allergy Activ e acetaminophen / oxycodone Percocet Unknown Drug Allergy Active succinylcholine Succinylcholine Chloride paralization Drug Allergy Active REASON FOR VISIT PCP 01/2023, Foot pain Medications Medication SIG (Take, Route, Frequency, Duration) Notes Start Date End Date Status Ibuprofen 800 MG 1 tablet with food or milk as needed Orally Three times a day 06/08/2020 Not-Taking Work Note . . . patient is disabled from work and may return to work on 07/16/20 07/03/2020 Active ProAir HFA prn Active Nitro-Bid 2 % as directed Transdermal aaply bid to toes for 30 days Not-Taking Keflex 500 MG 1 capsule Orally bid for 7 days 06/08/2020 Not-Taking Valsartan-hydroCHLOROt hiazide 160-25 MG 1 tablet Orally Once a day 10/13/2017 Active Walking Boot/Pneumatic As directed Wear Daily for Until further notice 05/01/2023 Active Omeprazole 20 MG 1 capsule Orally Once a day PRN 10/13/2017 Not-Taking Tretinoin 0.025 % APPLY SPARINGLY TO FACE QHS FOR ACNE AND PHOTOAGING External for 20 Active Multivitamin Active Aczone Active Night Splint AFO - L1930 as directed 05/01/2023 Active Acidophilus Not-Geoffrey ng Physical Therapy . . . 2-3x/week for 3-4 weeks 05/01/2023 Active Motrin PRN 10/13/2017 Not-Jeremy g amLODIPine Besylate winter only Active Align Prebiotic-Probiotic Active Advair HFA 250 Active Social History Tobacco Use: Social History Observation Description Date Details (start date - stop date) Never Smoker NA - NA Tobacco Use/Smoking Question Answer Notes Are you a: nonsmoker Additional Findings: Tobacco Non-User Current no n-smoker Alcohol Screen Question Answer Notes Did you have a drink contain ing alcohol in the past year? Yes How often did you have a dri nk containing alcohol in the past year? 2 to 4 times a month (2 points) Points 2 Interpretation Negative Tobacco use other than smoking: Question Answer Notes Are you an other tobacco user? No Vital Signs Height 5ft 4in in 05/01/2023 Weight 155 lbs 05/01/2023 BMI 26.6 kg/m2 05/01/2023 Procedures Procedure Date Ordered Date Performed Result Body Sit e 93309,[id number]-FRC TENDON SHEATH/LIGAMENT 05/01/2023 N/A Encounters Encounter Location Date Provider Diagnosis [facility] [address] [place] [id number] 05/01/2023 Nigel Amezcua Posterior tibial tendon dysfunction (PTTD) of left lower extremity M76.822 ; Posterior tibial tendon dysfunction (PTTD) of right lower extremity M76.821 ; Plantar fascial fibromatosis M72.2 ; Pain in left foot M79.672 and Pain in right foot M79.671 Assessments Encounter Date Diagnosis (ICD Code) Assessment Notes Treatment Notes Treatment Clinical Notes Section Notes 05/01/2023 Posterior tibial tendon dysfunction (PTTD) of left lower extremity (ICD-10 - M76.822) 05/01/2023 Posterior tibial tendon dysfunction (PTTD) of right lower extremity (ICD-10 - M76.821) 05/01/2023 Plantar fascial fibromatosis (ICD-10 - M72.2) Patient Educated with: HEEL CORD STRETCHES.pdf (HEEL CORD STRETCHES.pdf) Patient Educated with: RICE THERAPY.pdf (RICE THERAPY.pdf) Patient Educated with: INSTRUCTIONS FOR PROPER USE OF ORTHOTICS.pdf (INSTRUCTIONS FOR PROPER USE OF ORTHOTICS.pdf) 05/01/2023 Pain in left foot (ICD-10 - M79.672) 05/01/2023 Pain in right foot (ICD-10 - M79.671) Plan Of Treatment Medication Medication Name Sig Start Date Stop Date Notes Walking Boot/Pneumatic As directed Wear Daily for Until further notice 05/01/2023 Night Splint AFO - L1930 as directed 05/01/2023 Physical Therapy . . . 2-3x/week for 3-4 weeks 05/01/2023 Treatment Notes Assessment Notes Plantar fascial fibromatosis Patient Edu cated with: HEEL CORD STRETCHES.pdf (HEEL CORD STRETCHES.pdf) Patient Educated with: RICE THERAPY.pdf (RICE THERAPY.pdf) Patient Educated with: INSTRUCTIONS FOR PROPER USE OF ORTHOTICS.pdf (INSTRUCTIONS FOR PROPER USE OF ORTHOTICS.pdf) Pending Test Test Name Order Date X ray : Ankle, left 3V 05/01/2023 X ray : Foot, left 3V 05/01/2023 X ray : Foot, right 3V 05/01/2023 46863,[id number] TENDON SHEATH/LIGAMENT 0 05/01/2023 Next Appt Details Follow Up: 3 Weeks, Reason: Procedure Notes * Category Sub-Category Detail Notes Injection Tendon Sheath or Fascia 62733, J 0702 Injection - Plantar Fascia w/ mixture of Celestone Soluspan 3mg and 1cc 1 percent Xylocaine Plain anes. utilizing aseptic technique. The patient tolerated the procedure well. A dry sterile dressing was applied. Post injection instructions were dispensed, verbally discussed, and confirmed understood by the patient. I explained that a steroid and local anesthetic injections are administered to relieve pain and inflammation and thereby meant to improve function. I explained the possible complications including but not limited to signs/symptoms of steroid flare, infection, bruising, atrophy, discoloration of skin, change/deviation in toe position, and that additional injections may be necessary, Patient relates post-procedural pain assessment improved at ( 0-1) out of 10, LEFT foot--plm heel Progress Notes * Nanette MUNGUIAB:1960 (63 yo F)Acc No.[id number]:05/01/2023 Progress Note Patient:?Lisa Munguia Provider:?Nigel Amezcua DPM :1960???Age:63 Y???Sex:Female D ate:05/01/2023 Address:[address], [place], [id number] Pcp:Pilar Aviles MD Subjective: * Chief Complaints: * ???PCP 01/2023Foot pain * HPI: ???Foot Pain:?Nature:?sharp, aching, swelling, tenderness.?Location?B/L, L>R, Midfoot, Rearfoot and ankle.?Duration:?1 month.?Onset/Cause:?after rt hip sx.?Course:?worse.?Aggrevated:?any pressure, standing, walking.?Treatments:?change in shoes, innersoles.?Quality/Severity?9, scale 1-10.? * ROS:?General/Constitutional:?Nausea?denies, denies.?Vomiting?denies, denies.?Hunger Thirst?denies, denies.?Loss appetite?denies, denies.?Chills?denies, denies.?Fatigue?denies, denies.?Fever?denies, denies.?Night Sweats denies, denies.?Unexplained weight loss?denies, denies.?Ophthalmologic:?Blurred vision?denies.?Red eye?denies.?HEENTM:?Dentures?denies.?Dizziness?denies.?Glasses/contacts?denies.?Retinopathy?de nies.?Blurred/double vision?denies.?TMJ?denies.?Discharge/drainage?denies.?Implants?denies.?Hard of hearing denies.?Difficulty chewing/swallowing/speaking?denies.?Nose bleeds?denies.?Sore mouth?denies.?Swollen glands?denies.?Respiratory:?Patient denies?cough, hemoptysis, pain with inspiration, chest pain, shortness of breath at rest, shortness of breath with exertion.?On Oxygen?denies.?Pneumonia/pleurisy?denies.?Bronchitis?denies.?Emphysema?denies.&# 160;Coughing?denies.?Co ugh blood?denies.?Shortness of breath?denies.?Wheezing?denies.?Cardiovascular:?Patient denies?chest pain at rest, chest pain with exertion, palpitations.?Pacemaker?denies.?MVP?denies.?WPW?denies.?CHF?denies.?Heart attack?denies.?Septal defect?denies.?Rapid beat?denies.?Chest pain ?denies.?Atrial Fib.?denies.?Murmur/Palpitations?denies.?Gastrointestinal:?Hemorrhoids?denies.?Stomach/Abdominal pain?denies, denies.?Dark blood stool?denies, denies.?Irritable bowel ?denies, denies.?Constipation?denies, denies.?Diarrhea?denies, denies.?Vomiting?denies, denies.?Hematology:?Swelling?denies.?Bruising?denies.?Bleeding problem?denies, denies.?Genitourinary:?Blood urine?denies.?Frequent/Painfu/urination/bladder control?denies.?Kidney stones?denies.?Infection (UTI)?denies.?Nephropathy?denies.?Musculoskeletal:?Patient denies?any other musculoskeletal complaints.?Hammertoes?denies.?Bunions?denies.?Scoliosis/kyphosis?denies.?Muscle cramps / walking?denies.?Generalized aches and pains?denies.?Weakness?denies.?Peripheral Vascular:?Patient denies?cold extremities.?Integ.:?Baker?denies.?Scars?denies.?Corns/calluses?denies.?Ingrown nails?denies.?Painful nails?denies.?Rashes?denies.?Neurologic:?Difficulty sleeping?denies, denies.?Bipolar?denies.?Brain disorder?denies.?Balance trouble?denies.?Confusion?denies, denies.?Fainting/blackouts?denies.?Headache?denies.?Tremors?denies.? * Medical History:? * Surgical History:?tonsillect kamran 1977wisdom teeth extraction 1978cesarean section 02/1985hysterectomy 10/1987rt breast sx 06/1988lumpectomy, right breast 06/1992oopherectomy 03/1993Tummy tuck breast reconstruction leg surgery Jaw replacement 2017rotator cuff, muscle repair 11/2021gall bladder 05/2022lipoma, left hamstring olonectomy ight hip replacement, 05/03/23/ left hip replacement 05/2023 * Hospitalization/Major Diagno stic Procedure:?[facility], bladder infection 09/2019[facility]- MRI 11/30/20[facility]- rsv, covid * Family History:?Mother: dece ased, diagnosed with Unspecified cerebral artery occlusion with cerebral infarction, Family history of arthritis.?Father: , diagnosed with Unspecified essential hypertension, Other malignant neoplasm of unspecified site.?Spouse: alive.? * Social History:?Tobacco Use:?Tobacco Use/Smoking?Are you a:?nonsmoker ?Additional Findings: Tobacco Non-User?Current non-smoker ?Tobacco use other than smoking?Are you an other tobacco user??No ???Drugs/Alcohol:?Drugs?Have you used drugs other than those for medical reasons in the past 12 months??No ?Alcohol Screen?Did you have a drink containing alcohol in the past year??Yes ?How often did you have a drink containing alcohol in the past year??2 to 4 times a month (2 points) ?Points?2 ?Interpretation?Negative ???Miscellaneous:?Caffeine: yes, frequency:. ?Children: yes. ?Exercise: yes, bike riding, PT. ?Marital status: . ?Occupation: Retired. * Medications:?TakingamLODIPin e Besylate , Notes: winter onlyAlign Prebiotic- Probiotic Advair HFA , Notes: 250Aczone Multivitamin Tretinoin 0.025 % Cream APPLY SPARINGLY TO FACE QHS FOR ACNE AND PHOTOAGING External Valsartan-hydroCHLOROthiazide 160-25 MG Tablet 1 tablet Orally Once a dayProAir HFA , Notes: prnWork Note . . . . patient is disabled from work and may return to work on 07/16/20Taking amLODIPine Besylate , Notes: winter onlyTaking Align Prebiotic-Probiotic Taking Advair HFA , Notes: 250Taking Aczone Taking Multivitamin Taking Tretinoin 0.025 % Cream APPLY SPARINGLY TO FACE QHS FOR ACNE AND PHOTOAGING External Taking Valsartan- hydroCHLOROthiazide 160-25 MG Tablet 1 tablet Orally Once a dayTaking ProAir HFA , Notes: prnTaking Work Note . . . . patient is disabled from work and may return to work on 07/16/20Not-Taking/PRNAcidophilus Motrin , Notes: PRNOmeprazole 20 MG Capsule Delayed Release 1 capsule Orally Once a day, Notes: PRNIbuprofen 800 MG Tablet 1 tablet with food or milk as needed Orally Three times a dayNitro-Bid 2 % Ointment as directed Transdermal aaply bid to toesKeflex 500 MG Capsule 1 capsule Orally bidMedication List reviewed and reconciled with the patientNot-Taking/PRN Acidophilus Not-Taking/PRN Motrin , Notes: PRNNot-Taking/PRN Omeprazole 20 MG Capsule Delayed Release 1 capsule Orally Once a day, Notes: PRNNot-Taking/PRN Ibuprofen 800 MG Tablet 1 tablet with food or milk as needed Orally Three times a dayNot-Taking/PRN Nitro-Bid 2 % Ointment as directed Transdermal aaply bid to toesNot-Taking/PRN Keflex 500 MG Capsule 1 capsule Orally bidMedication List reviewed and reconciled with the patient * Allergies:?PercocetDemerolDi metapp NDSuccinylcholine Chloride: paralizationyes[Allergies Verified] Objective: * Vitals:?Ht: 5ft 4in, Wt:155, BMI:26.6, Shoe size: 8.5, Ht-cm: 162.56 cm, Wt-k.31 kg. * Examination: ???General Examination: ?GENERAL APPEARANCE:?pleasant, alert, well nourished, well developed, well hydrated, with good attention to hygene/body habitus, and in no acute distress.?ORIENTED:?person,place, and time.?Neurological: ?SENSORY:?Neurological exam is normal, pain sensation normal, vibration sensation intact, pinprick sensation is normal in the lower extremities, denies, tingling, burning, anesthesia, paresthesia, hyperesthesia, B/L, Neurological exam demonstrates pop plantar fascia left more than right and medial left ankle and pt tendon maureen at insertion .?TINEL'S COMPRESSION:?Negative tarsal tunnel, dora pedis, and medial calcaneal nerves B/L.?BABINSKI REFLEX:?absent.?Neuroma Pain: ?PALPATION:?No interspace pain noted on palpation.?Vascular: ?DP PULSES:?2/4, B/L.?PT PULSES:?2/4, B/L.?CAPILLARY FILL TIME:?3 secs. per digit, B/L.?SKIN TEMPERTURE GRADIENT OF THE LOWER EXTERMITIES:?warm to cool, proximal to distal, B/L.?HAIR GROWTH/TEXTURE/ELASTICITY/TURGOR:?normal, B/L.?PIGMENTATION:?normal, B/L.?EDEMA:?no edema.?TELANGECTASIA:?absent.?VARICOSITIES:?absent.?Dermatologic: ?SKIN FINDINGS:?Skin exam reveals normal texture, elasticity, and tugor. There are no masses. The interspaces are clear, B/L .?Orthopedic: ?MUSCLE STRENGTH:?5/5 all groups in a symmetrical fashion , B/L.?GAIT ABNORMALITY:?pronated, abducted, B/L.?X-Rays - IMAGING REPORT: ?Clinical Indication(s):? Evaluate Biomechanical Deformity.?Views:? 3 views of Foot, B/L, 2 views of Ankle, LEFT.?Foot structure:? reveals excess pronation with, anterior break in cyme line.? Assessment: * Assessment: 1.?Posterior tibial tendon d ysfunction (PTTD) of left lower extremity - M76.822 (Primary)?2.?Posterior tibial tendon dysfunction (PTTD) of right lower extremity - M76.821?3.?Plantar fascial fibromatosis - M72.2?4.?Pain in left foot - M79.672?5.?Pain in right foot - M79.671? Plan: * Treatment: 2.?Plantar fascial fibromato sis? Start Night Splint AFO - L1930, as directed, Dx Plantar Fasciitis;?Start Physical Therapy ., ., ., ., 2-3x/week, 3-4 weeks, Dx:, Refills .;?Start Walking Boot/Pneumatic, As directed, Wear, Daily, Until further notice, 1, Refills 0.?Imaging: X ray : Foot, left 3V ?Imaging: X ray : Foot, right 3V?Procedure: 78187,[id number] TENDON SHEATH/LIGAMENT Notes: Patient Educated with: HEEL CORD STRETCHES.pdf (HEEL CORD STRETCHES.pdf) Patient Educated with: RICE THERAPY.pdf (RICE THERAPY.pdf) Patient Educated with: INSTRUCTIONS FOR PROPER USE OF ORTHOTICS.pdf (INSTRUCTIONS FOR PROPER USE OF ORTHOTICS.pdf).?? * Procedures:?Injection:?Tendon Sheath or Fascia?23289, J0702 Injection - Plantar Fascia w/ mixture of Celestone Soluspan 3mg and 1cc 1 percent Xylocaine Plain anes. utilizing aseptic technique. The patient tolerated the procedure well. A dry sterile dressing was applied. Post injection instructions were dispensed, verbally discussed, and confirmed understood by the patient. I explained that a steroid and local anesthetic injections are administered to relieve pain and inflammation and thereby meant to improve function. I explained the possible complications including but not limited to signs/symptoms of steroid flare, infection, bruising, atrophy, discoloration of skin, change/deviation in toe position, and that additional injections may be necessary, Patient relates post-procedural pain assessment improved at ( 0-1) out of 10, LEFT foot--plm heel.? * Procedure Codes:?78389 X-RAY EXAM OF RIGHT FOOT 3V, Modifiers: 26 , [id number] X- RAY EXAM OF LEFT FOOT 3V, Modifiers: 26 , [id number] X-RAY EXAM OF LEFT ANKLE 3V, Modifiers: 26 , [id number] INJ TENDON SHEATH/LIGAMENT, Modifiers: XS J0702 INJ BETAMETHSN ACTAT&SOD PHOSPH-3MG * Preventive Medicine:? ??Counseling:?Discussion:?-14: Office or other outpatient visit for the evaluation and management of an established patient, which required a medically appropriate history and/or examination and MODERATE level of DECISION MAKING for: 1 OR MORE CHRONIC PROBLEM(S) THATS WORSENING, 2 STABLE CHRONIC PROBLEMS, A NEWLY DIAGNOSED PROBLEM WITH UNCERTAIN PROGNOSIS, AN ACUTE COMPLICATED INJURY WITH MULTIPLE TREATMENT OPTIONS, OR AN ACUTE PROBLEM WITH ACCOMPANYING SYSTEMIC SYMPTOMS, THAT POSE(S) A MODERATE RISK OF MORBIDITY. THIS CONDITION MAY ALSO INCLUDE RX DRUG MANAGEMENT, OR A DECISON FOR MINOR SURGERY. The visit on the day of the encounter encompassed interpreting the data and educating the patient as to the nature of their condition, treatment options available according to their individual PMH, meds, allergies, and overall health/living conditions, as well as any potential risks or complications that may occur from a failure to adhere to, and participate in, the recommended course of therapy. The discussion included a complete verbal, and/or written explanation of the examination results, any x-rays taken, the proposed diagnosis, and outline of the treatment plan. A schedule for future care needs was also explained. The patient verbalized an understanding of the instructions at this time and agreed to be an active participant in their treatment. If the patient should think of any questions or concerns after the visit, I have encouraged the patient to call the office.?Heel pain:?FASCIITIS: I explained to the patient the possible etiologies of Plantar Fasciitis including foot type/shoegear/activity level/exercise routine and the risks/benefits of all the different treatment options for heel pain including: No treatment at all, Rest, Ice, NSAIDs(only if well tolerated after meals), New/supportive Shoegear, Strappings and Tapings, Stretching exercises, Deep Tissue Massage, Heel cups/cushions, Arch support/shoe inserts, Custom orthoses, Topical analgesics including Aspercream/Voltaren gel, Night splint AFO for am stiffness, Cortisone injection therapy, Cast boot with crutches/cane/or walker for assisted ambulation, Physical Therapy, EPAT/ESWT, Interfil injection therapy, as well as surgical [place]/Endoscopic Fasciitomy surgical procedures if needed. Recommendations were made to limit barefoot walking, eliminate wearing nonsupportive shoegear (i.e. flip-flops or sandals, or a shoe with an easily bendable, foldable, or twistable sole) and wear shoegear with a good solid sole, a supportive arch, and plenty of room for an insert/orthotic if necessary. If wearing sandals was required by the patient, we recommended orthopedic sandals such as Orthoheel or Birkenstock even while in the home. If the patient wore heels in the past, we recommended they continue, but eliminate the use of flats. The advantages and disadvantages of each option were discussed and the patients questions re: types of shoegear, custom vs prefabricated inserts, activity level, PO vs Topical medications (and their respective potential complications/drug interactions/side effects), and consistency in home treatment regimens for optimal success were answered to their satisfaction. Literature detailing plantar fasciitis and the various treatment options were dispensed and reviewed--pt to use her rigid custom orthoses and hiking boots.? * Follow Up:?3 Weeks * Images: * Sign off status: Completed true * Provider:Paul Amezcua DPM Date:? 023 Generated for Jose Antonioi berenice/Fidel/eTransmitting on:?10/25/2024 09:45 AM EDT History and Physical Notes * HPI (History of Present Illness) Category Sub-Category Detail Notes Category Not es Foot Pain Aggrevated: any pressure, standing, walk ing Onset/Cause: after rt hip sx Course: worse Duration: 1 month Nature: sharp, aching, swell ing, tenderness Treatments: change in shoes, inn ersoles Quality/Severity 9, scale 1-10 Location B/L, L>R, Midfoot, R earfoot and ankle Examination Category Sub-Category Detail Notes Category Not es Neuroma Pain PALPATION: No interspace pain noted on palpation Neurological SENSORY: Neurological exa m is normal, pain sensation normal, vibration sensation intact, pinprick sensation is normal in the lower extremities, denies, tingling, burning, anesthesia, paresthesia, hyperesthesia, B/L, Neurological exam demonstrates pop plantar fascia left more than right and medial left ankle and pt tendon maureen at insertion BABINSKI REFLEX: absent TINEL'S COMPRESSION: Negative tarsal carol angela, dora pedis, and medial calcaneal nerves B/L Dermatologic SKIN FINDINGS: Skin exam reveal s normal texture, elasticity, and tugor. There are no masses. The interspaces are clear, B/L Orthopedic GAIT ABNORMALITY: pronated, abducted, B/L MUSCLE STRENGTH: 5/5 all groups in a symmetrical fashion , B/L General Examination GENERAL APPEARANCE: pleasant , alert, well nourished, well developed, well hydrated, with good attention to hygene/body habitus, and in no acute distress ORIENTED: person,place, and ti me Vascular DP PULSES (B): 2/4, B/L PT PULSES (B): 2/4, B/L CAPILLARY FILL TIME: 3 secs. per digit, B/L TEMPERTURE GRADIENT (C): warm to cool, p roximal to distal, B/L TROPHIC CONDITION-TEXTURE/ELASTICITY/TURGOR/HAIR GROWTH (B): normal, B/L EDEMA (C): no edema TELANGECTASIA: absent VARICOSITIES: absent PIGMENTATION: normal, B/L X-Rays - IMAGING REPORT Foot structure: reveals excess pronation with, anterior break in cyme line Views: 3 views of Foot, B/L , 2 views of Ankle, LEFT Clinical Indication(s): Evaluate Biomech anical Deformity
--- OUTSIDE RECORDS SUMMARY | 2024-10-25 09:45 | XMS_ITS | Encounter Summary ---
Author Organization [facility] Address [address] [place] [phone] Phone Care Team Providers Care Technology Support Analyst Name Role Phone Pilar Aviles MD Primary Care Provider Encounter Details Date Type Department Care Team (Late st Contact Info) Description 11/04/2021 Ancillary Orders [facility],Outside Imaging [address] [place] [address] System, Provider Not In, [place] [address] Social History Tobacco Use Types Packs/Day Years Used Date Smoking Tobacco: Never Smokeless Tobacco: Never Alcohol Use Standard Drinks/Week Comments Not Currently 0 (1 standard drink = 0.6 oz pur e alcohol) Sex and Gender Information Value Date Recorded Sex Assigned at Not on file Gender Identity Not on file Sexual Orientation Not on file documented as of this encounter Plan of Treatment Not on file documented as of this encounter Results * XR Upper Extremity Outside (No Interpretation) (12/07/2018 12:00 AM EDT) Narrative SYSTEMGENERATED, DOCUMENTATION - 11/04/2021 12:02 PM EDT This study is for PACS storage only and not for interpretation. Provider Not In System PhD IMG OUTSIDE I MAGING W/OUT INTERPRETATION documented in this encounter Visit Diagnoses Not on filedocumented in this encounter Care Teams Technology Support Analyst Relationship Specialty Start Date End Date Pilar Aviles MD [address] [place] [id number] PCP - General 08/13/17 documented as of this encounter Additional Source Comments The information contained in this document represents components of the legal health record. It is not the complete legal health record.[facility]
--- OUTSIDE RECORDS SUMMARY | 2024-10-25 09:45 | XMS_ITS | Patient Health Record ---
Author Organization [facility] [place] Address [address] [place] [address] Care Team Providers Care Turbine Inspector Name Role Phone Pilar Aviles MD Primary Care Provider Nigel Muñoz Unavailable [phone] Allergies Allergen (clinical drug ingredient) Drug/Non Drug Allergy documented on EMR Reaction Allergy Type Onset Date Status meperidine Demerol Unknown Drug Allergy Active Dimetapp ND Unknown Drug Allergy Activ e acetaminophen / oxycodone Percocet Unknown Drug Allergy Active succinylcholine Succinylcholine Chloride paralization Drug Allergy Active Reason For Referral No Information Medications Medication SIG (Take, Route, Frequency, Duration) Notes Start Date End Date Status Advair HFA 250 Active Motrin PRN 10/13/2017 Not-Takin g Acidophilus Not-Taki ng Multivitamin Active Ibuprofen 800 MG 1 tablet with food or milk as needed Orally Three times a day 06/08/2020 Not-Taking Aczone Active Omeprazole 20 MG 1 capsule Orally Once a day PRN 10/13/2017 Not-Taking Physical Therapy . . . 2-3x/week for 3-4 weeks 05/01/2023 Active Night Splint AFO - L1930 as directed Active Align Prebiotic-Probiotic Active amLODIPine Besylate winter only Active Walking Boot/Pneumatic As directed Wear Daily for Until further notice 05/01/2023 Active Valsartan-hydroCHLOROt hiazide 160-25 MG 1 tablet Orally Once a day 10/13/2017 Active Keflex 500 MG 1 capsule Orally bid for 7 days 06/08/2020 Not-Taking Tretinoin 0.025 % APPLY SPARINGLY TO FACE QHS FOR ACNE AND PHOTOAGING External for 20 Active Nitro-Bid 2 % as directed Transdermal aaply bid to toes for 30 days Not-Taking Work Note . . . 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 No Problems Problem Type SNOMED Code ICD Code Onset Dates Problem Status W/U Status Risk Notes Problem 296353014 Raynaud's disease without gangrene (I73.00) Active confirmed Problem 519034520 Hammertoe of left foot (M20.42) Active confirmed Problem 823595983 Hammertoe of right foot (M20.41) Active confirmed Plan Of Treatment Pending Test Test Name Order Date X ray : Ankle, left 3V 05/01/2023 X ray : Foot, left 3V 05/01/2023 X ray : Foot, left 3V 05/08/2020 X ray : Foot, left 3V 06/19/2020 X ray : Foot, left 3V 07/03/2020 X ray : Foot, left 3V 11/27/2020 X ray : Foot, right 3V 05/01/2023 X ray : Foot, right 3V 05/08/2020 X ray : Foot, right 3V 11/27/2020 62480 I&D ABSCESS- SIMPLE,SINGLE 018 [id number] TENDON SHEATH/LIGAMENT 0 05/01/2023 [id number] TENDON SHEATH/LIGAMENT 1 Insurance Providers Payer Name Payer Address Payer Phone Subscriber Number Group Number Insured Name Patient Relationship to Insured Coverage Start Date Coverage End Date [facility] [address] [place] [address] [id number] Francis Payan Spouse - patient is the spouse of the insured Medical (General) History Medical History History ICD Code Cyst on right kidney Colon polyps Hypertension Skin cancer Surgical History Surgery Date(Month/Year) tonsillectomy 1976 wisdom teeth extraction 1977 section 02/1985 hysterectomy 10/1987 rt breast sx 06/1988 lumpectomy, right breast 06/1992 oopherectomy 03/1993 Alvin molina breast reconstruction leg surgery Jaw replacement 2016 rotator cuff, muscle repair 11/2021 gall bladder 05/2022 lipoma, left hamstring 05/2021 colonectomy 07/2022 right hip replacement, 05/03/23/ left hip replacement 05/2023 Hospitalization History Reason Date(Month/Year) [facility]ER- rsv, covid [facility]- MRI 11/30/20 [facility], bladder infection 09/2019
--- OUTSIDE RECORDS SUMMARY | 2024-10-25 09:45 | XMS_ITS | Clinical Summary ---
Author Organization [facility] Address [address] [place] [phone] Phone Care Team Providers Care Environmental Health Physician Name Role Phone Pilar Aviles MD Primary Care Provider Allergies Active Allergy Reactions Criticality Noted Date Comments Brompheniramine-Ppa High 11/11/2016 Other reaction(s): Unknown Celecoxib Other (See Comments) 11/07/2021 Icteric sclera Dimetapp Cold And Flu Hallucinations High 08/19/2021 Meperidine 12/22/2017 Other reaction(s): elevates BP Meperidine (Pf) High 11/11/2016 Other reaction(s): Unknown Oxycodone-Acetaminophen Nausea And Vomiting,Nausea and/or Vomiting Low 11/11/2016 Succinylcholine 08/19/2021 Succinylcholine Chloride 12/10/2020 Medications Medication Sig Dispensed Refills Start Date End Date Status valsartan-hydroCHLO ROthiazide (DIOVAN-HCT) 160-25 mg per tablet Take 1 tablet by mouth daily. 12/09/2017 Active ALPRAZolam (XANAX) 0.5 MG tablet 0.25 mg nightly at bedtime as needed. 0 09/17/2017 Active PROAIR HFA 90 mcg/actuation inhaler INHALE 2 PUFFS EVERY 4 HOURS NEEDED FOR WHEEZING 11/11/2019 Active dapsone (ACZONE) 5 % topical gel APPLY DAILY FOR ACNE 12/09/2019 A ctive fluticasone propion-salmeteroL (ADVAIR DISKUS) 250-50 mcg/dose DISKUS See Instructions, rinse mouth and throat after use 1 inhalation bid, # 3 each, 3 Refills, Maintenance, 03/20/21 14:36:00 EDT, Inhaler, [id number], Partial fill upon patient request if the prescription is for a schedule II opioid drug... 03/20/2021 Active fluticasone propionate (FLONASE) 50 mcg/actuation nasal spray 1 spray by Nasal route daily. Active cephalexin (KEFLEX) 500 MG capsule Take 1 capsule by mouth 3 (three) times a day. 11/27/2021 Active amLODIPine (NORVASC) 2.5 MG tablet Take 2.5 mg by mouth every other day. 06/06/2022 Active potassium chloride (K-TAB) 20 mEq TbER ER tablet Take 1 tablet by mouth daily. 10/18/2022 Active Active Problems Problem Noted Date Diagnosed Date Left shoulder pain 02/06/2020 Greater trochanteric bursitis of left hip 2017 Family History Medical History Relation Comments Stroke Mother Relation Status Comments Mother Social History Tobacco Use Types Packs/Day Years Used Date Smoking Tobacco: Never Smokeless Tobacco: Never Alcohol Use Standard Drinks/Week Comments Yes 0 (1 standard drink = 0.6 oz pur e alcohol) couple drinks per month Education Answer Date Recorded Are you interested in more education? Not on marce e 12/05/2022 Are you concerned about learning? Not on file 12/05/2022 No 12/05/2022 No 12/05/2022 Digital Access Answer Date Recorded No 01/05/2023 No 01/05/2023 No 01/05/2023 Reliable internet access at home? Not on file 01/05/2023 Device with a working camera? Not on file Sex and Gender Information Value Date Recorded Sex Assigned at Not on file Gender Identity Not on file Sexual Orientation Not on file Last Filed Vital Signs Vital Sign Reading Time Taken Comments Blood Pressure 127/88 11/14/2021 6:23 PM EDT Pulse 102 11/14/2021 6:23 PM EDT Temperature 36.2 ??C (97.2 ??F) 11/14/2021 6:23 PM ED T Respiratory Rate 18 11/14/2021 6:23 PM EDT Oxygen Saturation 97% 11/14/2021 6:23 PM EDT Inhaled Oxygen Concentration - - Weight 76.2 kg (168 lb) 11/07/2021 1:39 PM EDT Height 162.6 cm (5' 4 ) 11/07/2021 1:39 PM EDT Body Mass Index 28.84 11/07/2021 1:39 PM EDT Plan of Treatment Health Maintenance Due Date Last Done Comments CREATININE LEVEL 1960 LIPID PANEL 1960 POTASSIUM LEVEL 1960 DEPRESSION SCREENING 1972 HEPATITIS B SCREENING 02/01/1978 HEPATITIS C SCREENING 02/01/1978 HIV ONE-TIME SCREENING (18-65 YEARS) 02/01/1978 PAP SMEAR 02/01/1981 SCREENING FOR DIABETES 02/01/1995 MAMMOGRAM 2000 COLOGUARD 02/01/2005 COLONOSCOPY 02/01/2005 COLORECTAL CANCER SCREENING 02/01/2005 FIT TEST 02/01/2005 FOBT 02/01/2005 SIGMOIDOSCOPY 02/01/2005 VIRTUAL COLONOSCOPY 02/01/2005 ZOSTER VACCINES (1 of 2) 02/01/2010 PNEUMOCOCCAL VACCINES (50+ years) (2 of 2 - PCV) 09/17/2018 09/17/2017 INFLUENZA VACCINE (#1) 2024 , 07/05/2021, 04/14/2019, Additional history exists COVID-19 VACCINE ( season) 2024 06/02/2022, 07/05/2021, 11/12/2020 Adult Td,Tdap Booster 09/17/2027 09/17/2017 RSV VACCINE (1 - 1-dose 75+ series) 02/01/2035 SMOKING STATUS SCREENING (Once After 26 Yrs) Completed 11/10/2022 HEPATITIS A VACCINES Aged Out No long er eligible based on patient's age to complete this topic HEPATITIS B VACCINES Aged Out No long er eligible based on patient's age to complete this topic HIB VACCINES Aged Out No longer eligi ble based on patient's age to complete this topic MENINGOCOCCAL VACCINES (ACWY) Aged Out No longer eligible based on patient's age to complete this topic Medical Devices Implanted Type Area Scooter Mechanic Device Identifier Shelf Expiration Date Model / Serial / Lot [place] Suture 4.5mm Arthroscopy Reelx Stt Peek Ss Core Knotless Shapr Tip Expandable Bx/5ea - [id number] Implanted:Qty: 1 on 11/14/2021 by Jeet Kelly DO at [facility] Right: Shoulder [employer] 01/14/2023 [id number] / / [id number] [address] [place] [address]Catherine Payan, Personal/Family Self 1960 [address] [facility] [place] [address]Catherine Payan, Personal/Family Self 1960 [address] [facility] [place] Blanca Payan, Personal/Family Self 1960 [address] [place], [place] [address]Catherine Payan, Personal/Family Self 1960 [address] [facility] [place] [address]Catherine Payan, Personal/Family Self 1960 [address] [facility] [place] [address]Catherine Payan, Personal/Family Self 1960 [address] [facility] [address]Catherine Payan, Personal/Family Self 1960 [address] [place], [place] [address]Catherine Payan, Personal/Family Self 1960 [address] [place] [address] Care Teams Environmental Health Physician Relationship Specialty Start Date End Date Pilar Aviles MD [address] [place] [address] Blanca PCP - General 08/13/17 Additional Source Comments The information contained in this document represents components of the legal health record. It is not the complete legal health record.[facility]
--- OUTSIDE RECORDS SUMMARY | 2024-10-25 09:45 | XMS_ITS | Encounter Summary ---
Author Organization [facility] Address [address] [place] [address] Phone Care Team Providers Care Fountain Supervisor Name Role Phone Pilar Aviles MD Primary Care Provider Encounter Details Date Type Department Care Team (Late st Contact Info) Description 11/14/2021 Procedure Pass OR Admitting Dept - Virtual Department [address] [place] [address] Social History Tobacco Use Types Packs/Day Years Used Date Smoking Tobacco: Never Smokeless Tobacco: Never Alcohol Use Standard Drinks/Week Comments Yes 0 (1 standard drink = 0.6 oz pur e alcohol) couple drinks per month Sex and Gender Information Value Date Recorded Sex Assigned at Not on file Gender Identity Not on file Sexual Orientation Not on file documented as of this encounter Plan of Treatment Not on file documented as of this encounter Visit Diagnoses Not on filedocumented in this encounter Care Teams Fountain Supervisor Relationship Specialty Start Date End Date Pilar Aviles MD [address] [place] [address] PCP - General 08/13/17 documented as of this encounter Additional Source Comments The information contained in this document represents components of the legal health record. It is not the complete legal health record.[facility]
--- OUTSIDE RECORDS SUMMARY | 2024-10-25 09:45 | XMS_ITS | Encounter Summary ---
Author Organization [facility] Address [address] [place] [address] Phone Care Team Providers Care Banking Paralegal Name Role Phone Pilar Aviles MD Primary Care Provider Encounter Details Date Type Department Care Team (Late st Contact Info) Description 11/04/2021 Ancillary Orders [facility],Outside Imaging [address] [place] [address] System, Provider Not In, [place] [address] Social History Tobacco Use Types Packs/Day Years [...] documented as of this encounter Results * MRI Outside Upper Extremity (No Interpretation) (09/17/2020 12:00 AM EST) Narrative SYSTEMGENERATED, DOCUMENTATION - 11/04/2021 12:02 PM EDT This study is for PACS storage only and not for interpretation. Provider Not In System PhD IMG OUTSIDE I MAGING W/OUT INTERPRETATION documented in this encounter Visit Diagnoses Not on filedocumented in this encounter Care Teams Banking Paralegal Relationship Specialty Start Date End Date Pilar Aviles MD [address] [place] [address] PCP - General 08/13/17 documented as of this encounter Additional Source Comments The information contained in this document represents components of the legal health record. It is not the complete legal health record.[facility]
--- OUTSIDE RECORDS SUMMARY | 2024-10-25 09:45 | XMS_ITS | Encounter Summary ---
Author Organization [facility] Address [address] [place] [address] [place] [address] Phone Care Team Providers Care Shell Molder Name Role Phone Pilar Aviles MD Primary Care Provider Encounter Details Date Type Department Care Team (Late st Contact Info) Description 12/17/2017 Ancillary Orders [facility] [place] [address] [place] [phone] Jeet Kelly DO [address] [place] [address] Orthopedics & Sports Medicine, [place] [address] [email or web address] Left hip pain Social History Tobacco Use Types Packs/Day Years Used Date Smoking Tobacco: Never Assessed Sex and Gender Information Value Date Recorded Sex Assigned at Not on file Gender Identity Not on file Sexual Orientation Not on file documented as of this encounter Plan of Treatment Not on file documented as of this encounter Results * XR HIPS 1 VW EA BILAT PLUS PELVIS (12/22/2017 10:08 AM EDT) Narrative Marie Elena - 12/22/2017 10:08 AM EDT This image report has been auto-finalized and has not been read by a Radiologist. Interpretation has been included in the provider encounter note for this date of service. Jeet Kelly DO IMG XR PELVIS documented in this encounter Visit Diagnoses Diagnosis Left hip pain Pain in joint, pelvic region and thigh Left hip pain Pain in joint, pelvic region and thigh documented in this encounter Care Teams Shell Molder Relationship Specialty Start Date End Date Pilar Aviles MD [address] [place] [address] PCP - General 08/13/17 documented as of this encounter Additional Source Comments The information contained in this document represents components of the legal health record. It is not the complete legal health record.[facility]
--- OUTSIDE RECORDS SUMMARY | 2024-10-25 09:45 | XMS_ITS | Clinical Summary ---
Author Organization [facility] [address] [facility] Address [address] [place] [address] Phone Care Team Providers Care Ammunition Assembly Ii Laborer Name Role Phone Pilar Aviles MD Primary Care Provider [phone] Encounters Date Type Department Care Team Description 09/07/2024 Telephone Gastroenterology - [address] [phone] Kirsten Perez MA from Last 3 Months Surgical History Surgery Date Site/Laterality Comments HYSTERECTOMY PROCEDURE: HISTORICAL HYSTERECTOMY SECTION PROCEDURE: NM DELIVERY ONLY OTHER SURGICAL HISTORY Right PROCEDURE: ---- OTHER ----; COMMENT: hip OTHER SURGICAL HISTORY Left PROCEDURE: ---- OTHER ----; COMMENT: jaw replacement OTHER SURGICAL HISTORY Bilateral PROCEDURE: ---- OTHER ----; COMMENT: breast reconstruction OTHER SURGICAL HISTORY PROCEDURE: ARTHROSCOPY PROCEDURE NEC CHOLECYSTECTOMY PROCEDURE: NM LAPAROSCOPY SURG CHOLECYSTECTOMY Social History Tobacco Use Types Packs/Day Years Used Date Smoking Tobacco: Never Alcohol Use Standard Drinks/Week Comments Not Currently 0 (1 standard drink = 0.6 oz pur e alcohol) Comments Unknown Sex and Gender Information Value Date Recorded Sex Assigned at Not on file Legal Sex Female 12:44 PM EST Gender Identity Not on file Sexual Orientation Not on file Obstetrics History Last Filed Vital Signs Vital Sign Reading Time Taken Comments Blood Pressure 127/88 04/17/2023 9:57 AM EDT Pulse 82 04/17/2023 9:57 AM EDT Temperature - - Respiratory Rate - - Oxygen Saturation - - Inhaled Oxygen Concentration - - Weight 70.5 kg (155 lb 8 oz) 04/17/2023 9:57 AM EDT Height 160 cm (5' 3 ) 04/17/2023 9:57 AM EDT Body Mass Index 27.55 04/17/2023 9:57 AM EDT Plan of Treatment Health Maintenance Due Date Last Done Comments Breast Cancer Screening 1960 DTaP,Tdap,and Td Vaccines (1 - Tdap) 02/01/1979 Cervical Cancer Screening: Pap Smear 02/01/1981 Pneumococcal Vaccine: 50+ Years (1 of 1 - PCV) 02/01/2010 Zoster Vaccines (1 of 2) 02/01/2010 Colorectal Cancer Screening: Colonoscopy 07/08/2022 Depression Screening 07/08/2022 HIV Screening 07/08/2022 Hepatitis C Screening 07/08/2022 Social Influencers of Health Screening 07/08/2022 COVID-19 Vaccine (1 - season) 2024 Influenza Vaccine (#1) 2024 9, 04/29/2018, 07/14/2017, Additional history exists RSV Immunization Patients 60+ Years Old (1 - 1-dose 75+ series) 02/01/2035 HIB Vaccines Aged Out No longer eligi ble based on patient's age to complete this topic HPV Vaccines Aged Out No longer eligi ble based on patient's age to complete this topic Hepatitis A Vaccines Aged Out No long er eligible based on patient's age to complete this topic Hepatitis B Vaccines Aged Out No long er eligible based on patient's age to complete this topic IPV Vaccines Aged Out No longer eligi ble based on patient's age to complete this topic MMR Vaccines Aged Out No longer eligi ble based on patient's age to complete this topic Meningococcal ACWY Vaccine Aged Out N o longer eligible based on patient's age to complete this topic Meningococcal B Vacine Aged Out No lo nger eligible based on patient's age to complete this topic Pneumococcal Vaccine: Pediatrics (0 to 5 Years) and At-Risk Patients (6 to 64 Years) Aged Out No longer eligible based on patient's age to complete this topic RSV Immunization Patients Under 20 months Aged Out No longer eligible based on patient's age to complete this topic Varicella Vaccines Aged Out No longer eligible based on patient's age to complete this topic Care Teams Ammunition Assembly Ii Laborer Relationship Specialty Start Date End Date Pilar Aviles MD [address] [facility] [place] [address] PCP - General Family Medicine 04/14/19
--- OUTSIDE RECORDS SUMMARY | 2024-10-25 09:46 | XMS_ITS ---
Author Organization [facility] Address [address] [facility] [place] [address] Care Team Providers Care Construction Project Assistant Name Role Phone Traci BURKETT, Pilar Primary Care Provider Nigel Muñoz [phone] REASON FOR VISIT Seen Sooner Encounters Encounter Location Date Provider Diagnosis [address] [address] 05/15/2023 Nigel Amezcua Plan Of Treatment No Information Progress Notes * Aileen MUNGUIAaDOB:1960 (64 yo F)Acc No.[id number]:05/15/2023 Progress Note Patient:Lisa MADSEN Provider:?Nigel Amezcua DPM :1960???Age:63 Y???Sex:Female D ate:05/15/2023 Address: [address], [facility] Pcp:Pilar Aviles MD Subjective: * Chief Complaints: * ???1. Seen Sooner. * Medical History:? Objective: * Vitals:? Assessment: Plan: * Treatment: * Images: * The named appointment provid er may or may not be the originator of this progress note, and it is not deemed complete until electronically signed by the appointment provider. Sign off status: Pending * Provider:Paul Amezcua DPM Date:? 023 Generated for Printi ng/Faxing/eTransmitting on:?10/25/2024 09:45 AM EDT
--- OUTSIDE RECORDS SUMMARY | 2024-10-25 09:46 | XMS_ITS ---
Author Organization [facility] Address [address] [place] [address] Care Team Providers Care Manager Care Management Name Role Phone Traci BURKETT Pilar Primary Care Provider Nigel Muñoz Unavailable [phone] Allergies Allergen (clinical drug ingredient) Drug/Non Drug Allergy documented on EMR Reaction Allergy Type Onset Date Status meperidine Demerol Unknown Drug Allergy Active Dimetapp ND Unknown Drug Allergy Activ e acetaminophen / oxycodone Percocet Unknown Drug Allergy Active succinylcholine Succinylcholine Chloride paralization Drug Allergy Active Medications Medication SIG (Take, Route, Frequency, Duration) Notes Start Date End Date Status Motrin PRN 10/13/2017 Not-Takdaryl g Ibuprofen 800 MG 1 tablet with food or milk as needed Orally Three times a day 06/08/2020 Not-Taking Omeprazole 20 MG 1 capsule Orally Once a day PRN 10/13/2017 Not-Taking Keflex 500 MG 1 capsule Orally bid for 7 days 06/08/2020 Not-Taking Nitro-Bid 2 % as directed Transdermal aaply bid to toes for 30 days Not-Taking Acidophilus Not-Taki ng Physical Therapy . . . 2-3x/week for 3-4 weeks 05/01/2023 Active Walking Boot/Pneumatic As directed Wear Daily for Until further notice 05/01/2023 Active Work Note . . . patient is disabled from work and may return to work on 07/16/20 07/03/2020 Active ProAir HFA prn Active Advair HFA 250 Active Multivitamin Active Aczone Active Valsartan-hydroCHLOROt hiazide 160-25 MG 1 tablet Orally Once a day 10/13/2017 Active Tretinoin 0.025 % APPLY SPARINGLY TO FACE QHS FOR ACNE AND PHOTOAGING External for 20 Active Night Splint AFO - L1930 as directed Active Align Prebiotic-Probiotic Active amLODIPine Besylate winter only Active Social History Tobacco Use: Social History [...] No Vital Signs Height 5ft 4in in 05/21/2023 Weight 155 lbs 05/21/2023 BMI 26.6 kg/m2 05/21/2023 Procedures Procedure Date Ordered Date Performed Result Body Sit e 54077,L1332-FTX TENDON SHEATH/LIGAMENT 05/21/2023 N/A Encounters Encounter Location Date Provider Diagnosis [facility] [address] [address] 05/21/2023 Nigel Amezcua Posterior tibial tendon dysfunction (PTTD) of left lower extremity M76.822 ; Posterior tibial tendon dysfunction (PTTD) of right lower extremity M76.821 ; Plantar fascial fibromatosis M72.2 ; Pain in left foot M79.672 and Pain in right foot M79.671 Assessments Encounter Date Diagnosis (ICD Code) Assessment Notes Treatment Notes Treatment Clinical Notes Section Notes 05/21/2023 Posterior tibial tendon dysfunction (PTTD) of left lower extremity (ICD-10 - M76.822) 05/21/2023 Posterior tibial tendon dysfunction (PTTD) of right lower extremity (ICD-10 - M76.821) 05/21/2023 Plantar fascial fibromatosis (ICD-10 - M72.2) Patient Educated with: HEEL CORD STRETCHES.pdf (HEEL CORD STRETCHES.pdf) Patient Educated with: RICE THERAPY.pdf (RICE THERAPY.pdf) Patient Educated with: INSTRUCTIONS FOR PROPER USE OF ORTHOTICS.pdf (INSTRUCTIONS FOR PROPER USE OF ORTHOTICS.pdf) 05/21/2023 Pain in left foot (ICD-10 - M79.672) 05/21/2023 Pain in right foot (ICD-10 - M79.671) Plan Of Treatment Medication Medication Name Sig Start Date Stop Date Notes Night Splint AFO - L1930 as directed Treatment Notes Assessment Notes Plantar fascial fibromatosis Patient Edu cated with: HEEL CORD STRETCHES.pdf (HEEL CORD STRETCHES.pdf) Patient Educated with: RICE THERAPY.pdf (RICE THERAPY.pdf) Patient Educated with: INSTRUCTIONS FOR PROPER USE OF ORTHOTICS.pdf (INSTRUCTIONS FOR PROPER USE OF ORTHOTICS.pdf) Pending Test Test Name Order Date -INJ TENDON SHEATH/LIGAMENT 1 Next Appt Details Follow Up: prn, Reason: Procedure Notes * Category Sub-Category Detail Notes Injection Tendon Sheath or Fascia 701 Injection - Plantar Fascia w/ mixture of [...] assessment improved at ( 0-1) out of 10 , LEFT foot--plm aspect Progress Notes * Aileen MUNGUIAaDOB:1960 (63 yo F)Acc No.[id number]:05/21/2023 Progress Notes Patient:?Lisa Munguia Provider:?Nigel Amezcua DPM :1960???Age:63 Y???Sex:Female D ate:05/21/2023 Address:[address] [place] [address], [facility] Pcp:Pilar Aviles MD Subjective: * Chief Complaints: * ??? * HPI: ???Foot Pain:?Nature:?sharp, aching, swelling, tenderness.?Location?B/L, L>R, Midfoot, Rearfoot and ankle.?Duration:?several months.?Onset/Cause:?after rt hip sx.?Course:?improved at 40%.?Aggrevated:?any pressure, standing, walking.?Treatments:?change in shoes, innersoles-pt has complied with phase 4 insoles in her shoes, cortisone injection therapy.?Quality/Severity?5 , scale 1-10.? * ROS:?General/Constitutional:?Nausea?denies, denies.?Vomiting?denies, denies.?Hunger Thirst?denies, [...] hip replacement 05/2023 * Hospitalization/Major Diagno stic Procedure:?[facility], bladder infection 09/2019[facility]- MRI 11/30/20[facility]- rsv, covid * Family History:?Mother: dece ased, [...] work and may return to work on 07/16/20Night Splint AFO - L1930 as directed Physical Therapy . . . . 2-3x/weekWalking Boot/Pneumatic As directed Wear DailyTaking amLODIPine Besylate , Notes: winter onlyTaking Align Prebiotic- Probiotic Taking Advair HFA , Notes: 250Taking Aczone Taking Multivitamin Taking Tretinoin 0.025 % Cream APPLY SPARINGLY TO FACE QHS FOR ACNE AND PHOTOAGING External Taking Valsartan-hydroCHLOROthiazide 160-25 MG Tablet 1 tablet Orally Once a dayTaking ProAir HFA , Notes: prnTaking Work Note . . . . patient is disabled from work and may return to work on 07/16/20Taking Night Splint AFO - L1930 as directed Taking Physical Therapy . . . . 2-3x/weekTaking Walking Boot/Pneumatic As directed Wear DailyNot-Taking/PRNAcidophilus Motrin , Notes: PRNOmeprazole 20 MG Capsule [...] metapp NDSuccinylcholine Chloride: paralizationyes[Allergies Verified] Objective: * Vitals:?Ht:5ft 4in, Wt:155, BMI:26.6, Shoe size:8.5, Ht-cm: 162.56 cm, Wt-k.31 kg. * Examination: [...] a symmetrical fashion , B/L.?GAIT ABNORMALITY:?pronated, abducted, B/L.? * Physical Examination:?L1930 Nightsplint AFO:?Application of static AFO, including soft interface material, adjustable for fit/ positioning/ pressure reduction, may be used for minimal ambulation, prefabricated, including fitting and adjustment:?Medium, Left.? Assessment: * Assessment: 1.?Posterior tibial tendon d ysfunction (PTTD) of left lower extremity - M76.822 (Primary)?2.?Posterior tibial tendon dysfunction (PTTD) of right lower extremity - M76.821?3.?Plantar fascial fibromatosis - M72.2?4.?Pain in left foot - M79.672?5.?Pain in right foot - M79.671? Plan: * Treatment: * Procedures:?Injection:?Tendon Sheath or Fascia?00359, J0702 Injection - Plantar Fascia w/ mixture [...] assessment improved at ( 0-1) out of 10 , LEFT foot--plm aspect.? * Procedure Codes:? INJ T ENDON SHEATH/LIGAMENT, Modifiers: XS J0702 INJ BETAMETHSN ACTAT&SOD [id number] AFO PLASTIC/OTH MATERIAL PREFAB, Modifiers: LT * Preventive Medicine:? ??Counseling:?Discussion:?-13: Office or other outpatient visit for the evaluation and management of an established patient, which required a medically appropriate history and/or examination and LOW level of DECISION MAKING for: 1 STABLE ACUTE UNCOMPLICATED PROBLEM, 2 OR MORE MINOR PROBLEMS, OR 1 STABLE CHRONIC PROBLEM, THAT POSE(S) A LOW RISK FOR MORBIDITY/MORTALITY. The visit on the day of the [...] have encouraged the patient to call the office--pt to continue with phase 4 orthoses in all shoes and she will have left hip replacement sx 06/02/23, she has spoke to her ortho about correcting the iatrogenic lld.? * Follow Up:?prn * Images: * Sign off status: Completed true * Provider:?Nigel Amezcua DPM Date:? 023 Generated for Ame ng/Fidel/Kelly on:?10/25/2024 09:45 AM EDT History and Physical Notes * HPI (History of Present Illness) Category Sub-Category Detail Notes Category Not es Foot Pain Aggrevated: any pressure, standing, walk ing Onset/Cause: after rt hip sx Course: improved at 40% Duration: several months Nature: sharp, aching, swell ing, tenderness Treatments: change in shoes, inn ersoles-pt has complied with phase 4 insoles in her shoes, cortisone injection therapy Quality/Severity 5 , scale 1-10 Location B/L, L>R, Midfoot, R earfoot and ankle Physical Examination Category Sub-Category Detail Notes Section Note s L1930 Nightsplint AFO Application of sta tic AFO, including soft interface material, adjustable for fit/ positioning/ pressure reduction, may be used for minimal ambulation, prefabricated, including fitting and adjustment: Medium , Left Examination Category Sub-Category Detail Notes Category Not [...]
== END 2024-10-25 10:02 | disposition home or self-care (01) ==
LOC: HO.RHES 09:06
PROVIDERS: PCP Family Medicine; Visit Provider Internal Medicine Rheumatology
DX: M79.672 Pain in left foot (principal); M18.11 Unilateral primary osteoarthritis of first carpometacarpal joint, right hand; I73.00 Raynaud's syndrome without gangrene
CPT/HCPCS: 99214

== ENCOUNTER → 2024-10-25 11:30 | Outpatient (BNV) | payer OTHER, SELFPAY | PROVIDERS: PCP Family Medicine; Visit Provider Radiology Diagnostic Radiology | DX: M79.671 Pain in right foot (principal); M79.672 Pain in left foot; M77.32 Calcaneal spur, left foot | CPT/HCPCS: 73630 ==

== ENCOUNTER 2024-11-29 08:24 | Outpatient (AMB) | payer OTHER, SELFPAY ==
--- NOTE | 2024-11-29 08:25 | A.OFFVIS_ITS ---
Vital Signs 11/29/24 08:26 Height 5 ft 3.5 in Weight 163 lb 12.855 oz BMI 28.6 BP 120/84 Blood Pressure Location Rt brachial Position Sitting Pulse 102 H Pulse Source Pulse Oximeter Pulse Oximetry (%) 98 Oxygen Delivery Method Room Air Intake Visit Reasons: 1 month Intake Note: Patient presents follow up on Raynauds and arthritis today. Accompanied by: Self / Same As Patient Allergies metoclopramide [From Reglan] Allergy (Mild, Verified 11/29/24 08:25) unable to breathe acetaminophen [From PERCOCET] Allergy (Unknown, Verified 11/29/24 08:25) VOMITING meperidine [From DEMEROL] Allergy (Unknown, Verified 11/29/24 08:25) CARDIAC ARREST morphine [MORPHINE] Allergy (Unknown, Verified 11/29/24 08:25) ITCHINESS AND HIVES oxycodone [From PERCOCET] Allergy (Unknown, Verified 11/29/24 08:25) VOMITING succinylcholine Adverse Reaction (Severe, Verified 11/29/24 08:25) PARALYSIS brompheniramine [From Dimetapp Cold-Allergy (PE)] Adverse Reaction (Mild, Verified 11/29/24 08:25) Drowsy phenylephrine [From Dimetapp Cold-Allergy (PE)] Adverse Reaction (Mild, Verified 11/29/24 08:25) Drowsy HPI HPI 1 month: Details: She has been helping her daughter move who has to move by the end of the month aggravating hand pain. Pain in her right foot resolved after 3 days. She wore her orthotics and was using diclofenac gel. PFSH Medical History Gout Iliotibial band tendinitis of right side Bilateral papilloma of breast RSV (acute bronchiolitis due to respiratory syncytial virus) COVID-19 Asthma Complication of systemic hypertensive disorder History of mammogram Traumatic rupture of rotator cuff of left shoulder History of open sigmoidectomy Diverticulitis Surgical History Hx of breast reconstruction History of lumpectomy of both breasts History of hysterectomy History of colonoscopy History of rotator cuff surgery Hx of cholecystectomy History of right hip replacement History of left hip replacement H/O hernia repair Social History (Reviewed 04/22/25 @ 08:26 by ZULEIKA Nye [employer] Hand Smoke Exposure: No Physical Exam Vital Signs: Last Vital Signs Pulse 102 H 11/29/24 08:26 BP 120/84 11/29/24 08:26 Pulse Ox 98 11/29/24 08:26 Oxygen Delivery Method Room Air 11/29/24 08:26 BMI result Body Mass Index 28.6 Const Other: General: Comfortable Skin: No lesions seen or discoloration of fingertips. No digital ulcers. MSK: Squaring of right CMC present with tenderness. No synovitis. Office Procedures AMB Joint Injection/Aspiration Joint Injection/Aspiration Details: Bilateral CMC joint Prep: site was prepped using aseptic technique Injected into each site: 10 mg of, Kenalog, with 0.25 mL of and 1% plain lidocaine Procedure: The patient tolerated the procedure well. Postprocedure protocol was discussed with patient. Coding - Small Joint Procedure code (CPT) selection complete AMB Joint Injection/Aspiration Coding - Small Joint Procedure code (CPT) selection complete Office Meds lidocaine (PF) 10 mg/mL (1 %) injection solution Performing Provider: Dashawn Ribeiro MD Performing Location: [facility] Administered by: Dashawn Ribeiro MD on 11/29/24 12:27 Dose Route Admin Location Dispensed Lot Number Expiration Date [facility] [employer] 2.5 mg Infiltration 2 mL [id number] [employer] Kenalog 40 mg/mL suspension for injection Performing Provider: Dashawn Ribeiro MD Performing Location: [facility] Administered by: Dashawn Ribeiro MD on 11/29/24 12:27 Dose Route Admin Location Dispensed Lot Number Expiration Date [facility] [employer] 10 mg intra-articular 1 mL [id number] [facility] lidocaine (PF) 10 mg/mL (1 %) injection solution Performing Provider: Dashawn Ribeiro MD Performing Location: [facility] Administered by: Dashawn Ribeiro MD on 11/29/24 12:27 Dose Route Admin Location Dispensed Lot Number Expiration Date [facility] [employer] 2.5 mg Infiltration 2 mL [id number] [employer] Kenalog 40 mg/mL suspension for injection Performing Provider: Dashawn Ribeiro MD Performing Location: [facility] Administered by: Dashawn Ribeiro MD on 11/29/24 12:27 Dose Route Admin Location Dispensed Lot Number Expiration Date [facility] [employer] 10 mg intra-articular 1 mL [id number] [facility] Assessment & Plan Assessment & Plan (1) Foot pain: Comment: Acute left foot pain with inability to bear weight on her foot initially, resolved with arch support and diclofenac gel. In the past November of 2020 she had acute right foot pain with similar presentation eventually diagnosed with stress fracture. X-ray of right foot was normal. MRI right foot revealed mild effusion 1st MTP. There was no tendon pathology or acute fracture noticed on MRI. Unclear etiology of her pain. We discussed the importance of wearing supportive footwear. Code(s): M79.673 - Pain in unspecified foot Category: Medical Qualifiers: Laterality: left Qualified Code(s): M79.672 - Pain in left foot Plan: Continue to use foot support with orthotics Avoid Crocs She can use diclofenac gel PRN joint pain Contraindication to oral NSAIDs due to prior history of GI perforation (2) Arthritis of carpometacarpal (CMC) joint of right thumb: Comment: Bilateral CMC pain is uncontrolled Code(s): M18.11 - Unilateral primary osteoarthritis of first carpometacarpal joint, right hand Category: Medical Plan: Patient received bilateral CMC cortisone injections this visit Return to clinic in 3 month (3) Raynaud disease without gangrene: Comment: Controlled at this time with conservative management. Normotensive. Code(s): I73.00 - Raynaud's syndrome without gangrene Category: Medical Plan: Continue conservative management She will call office if she has a flare. She has amlodipine at home to use if Raynaud's becomes active. I will then need to send her prescription for main tenance treatment. Return to clinic in 3 months Orders: Orders AMB Joint Injection/Aspiration Today M18.11 - Unilateral primary osteoarthritis of first carpometacarpal joint, right hand AMB Joint Injection/Aspiration Today M18.12 - Unilateral primary osteoarthritis of first carpometacarpal joint, left hand Medications: New Kenalog (triamcinolone acetonide) 10 mg (0.25 mL) intra-articular ONCE 0.25 mL 0RF NS M18.11 - Unilateral primary osteoarthritis of first carpometacarpal joint, right hand lidocaine (PF) 2.5 mg (0.25 mL) Infiltration ONCE 0.25 mL 0RF M18.11 - Unilateral primary osteoarthritis of first carpometacarpal joint, right hand lidocaine (PF) 2.5 mg (0.25 mL) Infiltration ONCE 0.25 mL 0RF M18.12 - Unilateral primary osteoarthritis of first carpometacarpal joint, left hand Kenalog (triamcinolone acetonide) 10 mg (0.25 mL) intra-articular ONCE 0.25 mL 0RF NS M18.12 - Unilateral primary osteoarthritis of first carpometacarpal joint, left hand Coding Level of Care Code Est Pt Level 4 (36107) Complex EM visit Add On G2211 Diagnoses Left foot pain M79.672 Laterality: left Arthritis of carpometacarpal (CMC) joint of right thumb M18.11 Raynaud disease without gangrene I73.00 CPT Codes Coding - 18624 - Small joint: 81624 - Small Joint ([id number]) Coding - 60927 - Small joint: 50555 - Small Joint ([id number])
[2024-11-29 08:26] VITALS: BP 120/84; PULSE 102; O2SAT 98; BMI 28.6
--- OUTSIDE RECORDS SUMMARY | 2024-11-29 08:45 | XMS_ITS | Encounter Summary ---
Author Organization [facility] Address [address] [place] [address] [place] [address] Phone Care Team Providers Care Dye Reel Operator Helper Name Role Phone Pilar Aviles MD Primary Care Provider Encounter Details Date Type Department Care Team (Late st Contact Info) Description 12/17/2017 Ancillary Orders [facility] X[facility] - Julian [address] [place] [id number] Jeet Kelly DO [address] [place] [address] Orthopedics & Sports Medicine, [place] [address] [email or web address] Left hip pain Social History Tobacco Use [...] thigh documented in this encounter Care Teams Dye Reel Operator Helper Relationship Specialty Start Date End Date Pilar Aviles MD [address] [place] [address] PCP - General 08/13/17 documented as of this encounter Additional Source Comments The information contained in this document represents components of the legal health record. It is not the complete legal health record.[facility]
--- OUTSIDE RECORDS SUMMARY | 2024-11-29 08:45 | XMS_ITS | Encounter Summary ---
Author Organization [facility] Address [address] [place] [address] [place] [address] Phone Care Team Providers Care Yard Coordinator Name Role Phone Pilar Aviles MD Primary Care Provider Encounter Details Date Type Department Care Team (Late st Contact Info) Description 12/17/2017 Ancillary Orders [facility] [address] [place] [address] Jeet Kelly DO [address] [facility] [place] [address] Social History Tobacco Use Types Packs/Day Years Used Date Smoking Tobacco: Never Assessed Sex and Gender Information Value Date Recorded Sex Assigned at Not on file Gender Identity Not on file Sexual Orientation Not on file documented as of this encounter Plan of Treatment Not on file documented as of this encounter Visit Diagnoses Not on filedocumented in this encounter Care Teams Yard Coordinator Relationship Specialty Start Date End Date Pilar Aviles MD [address] [place] [address] PCP - General 08/13/17 documented as of this encounter Additional Source Comments The information contained in this document represents components of the legal health record. It is not the complete legal health record.[facility]
--- OUTSIDE RECORDS SUMMARY | 2024-11-29 08:45 | XMS_ITS | Clinical Summary ---
Author Organization [facility] Address [address] [place] [address] Phone Care Team Providers Care It Senior Analyst Name Role Phone Pilar Aviles MD [...] 03/20/21 14:36:00 EDT, Inhaler, [id number], Partial fill upon patient request if the [...] POTASSIUM LEVEL 1960 DEPRESSION SCREENING 1972 HEPATITIS C SCREENING 02/01/1978 HIV ONE-TIME SCREENING (18-65 YEARS) 02/01/1978 PAP SMEAR 02/01/1981 MAMMOGRAM 2000 COLOGUARD 02/01/2005 COLONOSCOPY 02/01/2005 COLORECTAL [...] this topic Medical Devices Implanted Type Area Concaving Machine Operator Device Identifier Shelf Expiration Date Model / Serial / Lot [place] Suture 4.5mm Arthroscopy Reelx Stt Peek Ss Core Knotless Shapr Tip Expandable Bx/5ea - [id number] Implanted:Qty: 1 on 11/14/2021 by Jeet Kelly DO at [facility] Right: Shoulder [employer] 01/14/2023 [id number] / / [id number] [address] [facility] [place] [address]Catherine Payan, Personal/Family Self 1960 [address] [facility] [facility] [place] [address]Catherine Payan, Personal/Family Self 1960 [address] [place] [address]Catherine Zimmermanta, Personal/Family Self 1960 [address] [facility] [place] [address]Catherine Zimmermanta, Personal/Family Self 1960 [address] [place] [address]Catherine Zimmermanta, Personal/Family Self 1960 [address] [facility] [place] [address]Catherine Zimmermanta, Personal/Family Self 1960 [address] [place] [address] [place], Ilsa Personal/Family Self 1960 [address] [place] [address]Catherine Payan, Personal/Family Self 1960 [address] [place] [address] Care Teams It Senior Analyst Relationship Specialty Start Date End Date Pilar Aviles MD [address] [place] [address] Blanca PCP - General 08/13/17 Additional Source Comments The information contained in this document represents components of the legal health record. It is not the complete legal health record.[facility]
--- OUTSIDE RECORDS SUMMARY | 2024-11-29 08:45 | XMS_ITS | Encounter Summary ---
Author Organization [facility] Address [address] [place] [address] Phone Care Team Providers Care Record Retrieval Specialist Name Role Phone Pilar Aviles MD Primary Care Provider Encounter Details Date Type Department Care Team (Late st Contact Info) Description 11/04/2021 Ancillary Orders [facility],Outside Imaging [address] [place] [address] System, Provider Not In, [place] [address] Social History Tobacco Use Types Packs/Day Years [...] on filedocumented in this encounter Care Teams Record Retrieval Specialist Relationship Specialty Start Date End Date Pilar Aviles MD [address] [place] [address] PCP - General 08/13/17 documented as of this encounter Additional Source Comments The information contained in this document represents components of the legal health record. It is not the complete legal health record.[facility]
--- OUTSIDE RECORDS SUMMARY | 2024-11-29 08:45 | XMS_ITS | Encounter Summary ---
Author Organization [facility] Address [address] [facility] [address] [place] [address] Phone Care Team Providers Care School Childcare Attendant Name Role Phone Pilar Aviles MD Primary Care Provider Encounter Details Date Type Department Care Team (Late st Contact Info) Description 11/14/2021 Procedure Pass OR Admitting Dept - Virtual Department [address] [place] [address] Social History Tobacco Use Types Packs/Day Years [...] on filedocumented in this encounter Care Teams School Childcare Attendant Relationship Specialty Start Date End Date Pilar Aviles MD [address] [place] [address] PCP - General 08/13/17 documented as of this encounter Additional Source Comments The information contained in this document represents components of the legal health record. It is not the complete legal health record.[facility]
--- OUTSIDE RECORDS SUMMARY | 2024-11-29 08:45 | XMS_ITS | Patient Health Record ---
Author Organization [facility] [place] Address [address] [facility] [place] [address] Care Team Providers Care Hris Coordinator Name Role Phone Pilar Aviles MD Primary Care Provider Nigel Muñoz Unavailable [phone] Allergies Allergen (clinical drug ingredient) Drug/Non Drug [...] Problem Status W/U Status Risk Notes Problem [id number] Raynaud's disease without gangrene (I73.00) Active confirmed Problem 452369737 Hammertoe of left foot (M20.42) Active confirmed Problem 010873445 Hammertoe of right foot (M20.41) Active confirmed [...] X ray : Foot, right 3V 11/27/2020 60271 I&D ABSCESS- SIMPLE,SINGLE 018 [id number] TENDON SHEATH/LIGAMENT 0 05/01/2023 13601,[id number] TENDON SHEATH/LIGAMENT 1 Insurance Providers Payer Name Payer Address Payer Phone Subscriber Number Group Number Insured Name Patient Relationship to Insured Coverage Start Date Coverage End Date [facility] [address] [place] [address] [id number] Francis Payan Spouse - patient is [...] Date(Month/Year) BERTHA/MANINDER- rsv, covid [facility]- MRI 11/30/20 [facility], bladder infection 09/2019
--- OUTSIDE RECORDS SUMMARY | 2024-11-29 08:45 | XMS_ITS | Clinical Summary ---
Author Organization [facility] [address] [facility] Address [address] [place] [address] Phone Care Team Providers Care Pari Mutuel Ticket Seller Name Role Phone Pilar Aviles MD Primary Care Provider [phone] Encounters Date Type Department Care Team Description 09/07/2024 Telephone Gastroenterology - [address] [phone] Kirsten Perez MA from Last 3 Months Surgical History Surgery Date Site/Laterality Comments HYSTERECTOMY PROCEDURE: HISTORICAL HYSTERECTOMY SECTION PROCEDURE: MD DELIVERY ONLY OTHER SURGICAL HISTORY Right PROCEDURE: ---- OTHER ----; COMMENT: hip OTHER SURGICAL HISTORY Left PROCEDURE: ---- OTHER ----; COMMENT: jaw replacement OTHER SURGICAL HISTORY Bilateral PROCEDURE: ---- OTHER ----; COMMENT: breast reconstruction OTHER SURGICAL HISTORY PROCEDURE: ARTHROSCOPY PROCEDURE NEC CHOLECYSTECTOMY PROCEDURE: MD LAPAROSCOPY SURG CHOLECYSTECTOMY Social History Tobacco Use [...] Influencers of Health Screening 07/08/2022 COVID-19 Vaccine ( - season) 2024 Influenza Vaccine (Season Ended) 2025 04/14/2019, 04/29/2018, 07/14/2017, Additional history exists RSV Immunization Adult Patients (1 - 1-dose 75+ series) 02/01/2035 HIB [...] age to complete this topic Meningococcal B Vaccine Aged Out No l onger eligible based on patient's age to complete [...] age to complete this topic Care Teams Pari Mutuel Ticket Seller Relationship Specialty Start Date End Date Pilar Aviles MD [address] [facility] [place] [address] PCP - General Family Medicine 04/14/19
--- OUTSIDE RECORDS SUMMARY | 2024-11-29 08:45 | XMS_ITS | Encounter Summary ---
Author Organization [facility] Address [address] [place] [address] Phone Care Team Providers Care Licensed Psychiatric Technician Name Role Phone Pilar Aviles MD Primary Care Provider Encounter Details Date Type Department Care Team (Late st Contact Info) Description 11/04/2021 Ancillary Orders [facility],Outside Imaging [address] [place] [address] System, Provider [place] In, [place] [address] Social History Tobacco Use Types Packs/Day Years [...] on filedocumented in this encounter Care Teams Licensed Psychiatric Technician Relationship Specialty Start Date End Date Pilar Aviles MD [address] [place] [address] PCP - General 08/13/17 documented as of this encounter Additional Source Comments The information contained in this document represents components of the legal health record. It is not the complete legal health record.[facility]
== END 2024-11-29 09:23 | disposition home or self-care (01) ==
LOC: HO.RHES 08:24
PROVIDERS: PCP Family Medicine; Visit Provider Internal Medicine Rheumatology
DX: M79.672 Pain in left foot (principal); M18.0 Bilateral primary osteoarthritis of first carpometacarpal joints; I73.00 Raynaud's syndrome without gangrene
CPT/HCPCS: 20600; 99214

== ENCOUNTER → 2024-11-29 08:24 | Outpatient (BNVA) | payer OTHER, SELFPAY | PROVIDERS: PCP Family Medicine; Visit Provider Internal Medicine Rheumatology | DX: M18.0 Bilateral primary osteoarthritis of first carpometacarpal joints (principal); M79.672 Pain in left foot; I73.00 Raynaud's syndrome without gangrene | CPT/HCPCS: 20600; J2003; J3300 ==

== ENCOUNTER 2025-02-28 09:09 | Outpatient (AMB) | payer OTHER, SELFPAY ==
--- NOTE | 2025-02-28 09:11 | MHC.OFFVIS ---
Vital Signs 02/28/25 09:12 Height 5 ft 3.5 in Weight 159 lb BMI 27.7 BP 90/80 Blood Pressure Location Lt brachial Position Sitting Pulse 108 H Pulse Source Pulse Oximeter Pulse Oximetry (%) 100 Oxygen Delivery Method Room Air Intake Visit Reasons: 3 months f/u Intake Note: Patient presents follow up on Raynauds and arthritis today. Allergies metoclopramide (From Reglan) Allergy (Mild, Verified 02/28/25 09:16) unable to breathe acetaminophen (From PERCOCET) Allergy (Unknown, Verified 02/28/25 09:16) VOMITING meperidine (From DEMEROL) Allergy (Unknown, Verified 02/28/25 09:16) CARDIAC ARREST morphine (MORPHINE) Allergy (Unknown, Verified 02/28/25 09:16) ITCHINESS AND HIVES oxycodone (From PERCOCET) Allergy (Unknown, Verified 02/28/25 09:16) VOMITING succinylcholine Adverse Reaction (Severe, Verified 02/28/25 09:16) PARALYSIS brompheniramine (From Dimetapp Cold-Allergy (PE)) Adverse Reaction (Mild, Verified 02/28/25 09:16) Drowsy phenylephrine (From Dimetapp Cold-Allergy (PE)) Adverse Reaction (Mild, Verified 02/28/25 09:16) Drowsy HPI HPI 3 months f/u: Details: Pain in her hands have been relieved with cortisone injections. She was out of fentanyl for 5 days due to her pharmacy not having a supply and went through withdrawal symptoms. [facility] Medical History Gout Iliotibial band tendinitis of right side Bilateral papilloma of breast RSV (acute bronchiolitis due to respiratory syncytial virus) COVID-19 Asthma Complication of systemic hypertensive disorder History of mammogram Traumatic rupture of rotator cuff of left shoulder History of open sigmoidectomy Diverticulitis Surgical History Hx of breast reconstruction History of lumpectomy of both breasts History of hysterectomy History of colonoscopy History of rotator cuff surgery Hx of cholecystectomy History of right hip replacement History of left hip replacement H/O hernia repair Social History Second Hand Smoke Exposure: No Physical Exam Vital Signs: Last Vital Signs Pulse 108 H 02/28/25 09:12 BP 90/80 02/28/25 09:12 Pulse Ox 100 02/28/25 09:12 Oxygen Delivery Method Room Air 02/28/25 09:12 BMI result Body Mass Index 27.7 Const Other: General: Comfortable Skin: No lesions seen or discoloration of fingertips. No digital ulcers. MSK: Squaring of right CMC present without tenderness. No synovitis. Assessment & Plan Assessment & Plan (1) Arthritis of carpometacarpal (CMC) joint of right thumb: Comment: Bilateral CMC pain is controlled with last set of cortisone injections 11/29/2024 Code(s): M18.11 - Unilateral primary osteoarthritis of first carpometacarpal joint, right hand Category: Medical Plan: Return to clinic in May or sooner if needed for cortisone injection (2) Raynaud disease without gangrene: Comment: Controlled at this time with conservative management. She is hypotensive but asymptomatic at this visit. Code(s): I73.00 - Raynaud's syndrome without gangrene Category: Medical Plan: Continue conservative management She will call office if she has a flare. She has amlodipine at home to use if Raynaud's becomes active. Return to clinic in May or sooner if knee Coding Level of Care Code Est Pt Level 3 (59311) Complex EM visit Add On G2211 Diagnoses Arthritis of carpometacarpal (CMC) joint of right thumb M18.11 Raynaud disease without gangrene I73.00
[2025-02-28 09:12] VITALS: BP 90/80; PULSE 108; O2SAT 100; BMI 27.7
--- OUTSIDE RECORDS SUMMARY | 2025-02-28 09:40 | XMS_ITS | Encounter Summary ---
Author Organization [facility] Address [address] [place] [address] [place] [address] Phone Care Team Providers Care Electronic Commerce Specialist Name Role Phone Pilar Aviles MD Primary Care Provider Encounter Details Date Type Department Care Team (Late st Contact Info) Description 12/17/2017 Ancillary Orders [facility] Xray - [place] [address] [place] [phone] Jeet Kelly DO [address] [place] [address] Orthopedics & Sports Medicine, [place] [address] [email or web address] Left hip pain Social History Tobacco Use Types Packs/Day Years Used Date Smoking Tobacco: Never Assessed Comments Unknown Sex and Gender Information Value Date Recorded Sex Assigned at Not on file Legal Sex Female 9:48 PM EDT Gender Identity Not on file Sexual Orientation [...] encounter note for this date of service. us Jeet Kelly DO IMG XR PELVIS Final Resul t documented in this encounter Visit Diagnoses Diagnosis Left hip pain Pain in joint, pelvic region and thigh Left hip pain Pain in joint, pelvic region and thigh documented in this encounter Care Teams Electronic Commerce Specialist Relationship Specialty Start Date End Date Pilar Aviles MD [address] [place] [address] PCP - General 08/13/17 documented as of this encounter Additional Source Comments The information contained in this document represents components of the legal health record. It is not the complete legal health record.[facility]
--- OUTSIDE RECORDS SUMMARY | 2025-02-28 09:40 | XMS_ITS | Patient Health Record ---
Author [facility] kael ColonJuan Alberto Address [address] [place] [address] Care Team Providers Care Warehouse Supervisor Name Role Phone Pilar Aviles MD Primary Care Provider Nigel Muñoz Unavailable [phone] Allergies Allergen (clinical drug ingredient) Drug/Non Drug [...] 10/13/2017 Not-Taking Physical Therapy . . . 2-3x/week; Duration: 3-4 weeks 05/01/2023 Active Night Splint AFO - L1930 as directed Active Align Prebiotic-Probiotic Active amLODIPine Besylate winter only Active Walking Boot/Pneumatic As directed Wear Daily; Duration: Until further notice 05/01/2023 Active Valsartan-hydroCHLOROt hiazide 160-25 MG 1 tablet Orally Once a day 10/13/2017 Active Keflex 500 MG 1 capsule Orally bid; Duration: 7 days 06/08/2020 Not-Taking Tretinoin 0.025 % APPLY SPARINGLY TO FACE QHS FOR ACNE AND PHOTOAGING External; Duration: 20 Active Nitro-Bid 2 % as directed Transdermal aaply bid to toes; Duration: 30 days Not-Taking Work Note . . [...] Problem Status W/U Status Risk Notes Problem Raynaud's disease (041485437) Raynaud's disease without gangrene (I73.00) Active confirmed Problem Acquired hammer toe of left foot (0222754935637 103) Hammertoe of left foot (M20.42) Active confirmed Problem Acquired hammer toe of right foot (8680392248418 105) Hammertoe of right foot (M20.41) Active confirmed [...] X ray : Foot, right 3V 11/27/2020 25573 I&D ABSCESS- SIMPLE,SINGLE 018 ,[id number] TENDON SHEATH/LIGAMENT 0 05/01/202320462,K7800-SEA TENDON SHEATH/LIGAMENT 1 Insurance Providers Payer Name Payer Address Payer Phone Subscriber Number Group Number Insured Name Patient Relationship to Insured Coverage Start Date Coverage End Date [facility] [address] [facility] [place] [address] [id number] Francis Payan Spouse - patient is the spouse of the insured Medical (General) History Medical History History ICD Code Cyst on right kidney Colon polyps Hypertension Skin cancer Surgical History Surgery Date(Month/Year) tonsillectomy 1976 wisdom teeth extraction 1977 section 02/1985 hysterectomy 10/1987 rt breast sx 06/1988 lumpectomy, right breast 06/1992 oopherectomy 03/1993 Tummy tuck breast reconstruction leg surgery Jaw replacement 2016 rotator cuff, muscle repair 11/2021 gall bladder 05/2022 lipoma, left hamstring 05/2021 colonectomy 07/2022 right hip replacement, 05/03/23/ left hip replacement 05/2023 Hospitalization History Reason Date(Month/Year) BERTHA/MANINDER- rsv, covid [facility]- MRI 11/30/20 [facility], bladder infection 09/2019
--- OUTSIDE RECORDS SUMMARY | 2025-02-28 09:40 | XMS_ITS | Data Portability ---
Author Organization [facility] Address [address] [place] [address] Assessment No assessment recorded. Plan of Treatment [...] Abnormal Flag Note LastModifiedBy Organization Detail LastModifiedTime 04/08/20 24 06/04/2023 imagi ng/di agnos tic resul t No observ ation record ed. [email or web address] Not Available 03/12 11:48:26 04/08/2006/04/2023 imagi ng/di agnos tic resul t No observ ation record ed. [email or web address] Not Available 03/12 11:48:27 Result Notes None recorded. Problems Name Problem SNOMED Code Status Onset Date Resolution Date Notes Provider Name and Address Organization Details Recorded Time Pain of right hip joint 132637289538171 Active 2022 Status : 'A'; Not Available [facility], [facility] 4 11:14:08 Problem Notes None recorded. Medical Equipment None Reported. Allergies Allergen ID Allergen Name Allergen Category Reaction Reaction Severity Criticality Documentation Date Start Date Code Code System Note Provider Name and Address Organization Details Recorded Time 83431 Demerol medicatio n Not available Not available Not available 10/12/20232022 27639 1 Rx[facility] 4 13:52:07 58760 acetamino phen / oxycodone medicatio n Not available Not available Not available 10/12/20232022 88518 3 RxNorm Not Available [facility] 13:52:07 Medications Name Sig Start Date Stop [...] 1 TABLET BY MOUTH EVERY 8 HOURS 02/17 completed Not Available Not Available Not [...] Updated DateTime 02/18/2024 154.94 cm 30.2 kg/m2 55596.78 g Jevon Scott [place] [facility] 02/18/2024 15:48:26 Social History None recorded. Functional Status None recorded. Mental Status None recorded. Family History Nothing Reported. Medical History No medical history recorded. Gynecological HistoryNo gynecological history recorded. Obstetrics History GPAL:G 0 P 0 0 0 0 Past Encounters Encounter ID Performer Location Encounter Start Date Encounter Closed Date Diagnosis/Indication Diagnosis SNOMED-CT Code Diagnosis ICD10 Code Diagnosis Note [id number] Lisa Bernal PA-C [place] [address] [place] [address] 02/18/2024 15:36:43 03/09/2024 12:51:00 Hip joint prosthesis present 671190784 Z96.641 Thigh pain 57363560 M79. 651 Health Concerns Section Related Observation LastModified by Organization Detai ls LastModified Time None Recorded Concern Status LastModified by Organization Details LastModified Time None Recorded Advance Directives Directive None Recorded Payers Insurance Date Sequence Insurance Name Policy Number Policy Graves Covered Member ID Graves Member ID Guarantor Name 06/15/[address] [place] [address] [id number] Lisa Payan [id number] Lisa Payan Notes Date Note Type Note [...] and lucid. Normal insight, affect and grooming. 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 No spasticity or clonus noted. EXAMINATION: The patient is well appearing and in no apparent distress. Alert and oriented x3. Gait is symmetric. Right hip reveals a surgical scar, otherwise no obvious deformity upon inspection. No edema, erythema, ecchymosis. There is a faint raised red rash developing over the anterior thigh. No blisters. Neurovascularly intact. No localized tenderness. ROM is pain-free. Negative straight leg raise. No instability. 5/5 strength. Calf/leg compartments soft and compressible. CT scan performed of the right hip at [facility] this past weekend has been independently reviewed. [...] All questions answered. Lisa Bernal PA-C [address] [facility] [address], [place], [address], [facility] - [facility] 02/18/2024 22:42:23 OBGyn Episode No OBEpisode recorded.
--- OUTSIDE RECORDS SUMMARY | 2025-02-28 09:41 | XMS_ITS | Referral Summary ---
Author Organization [facility] Address [address] [place] [address] Phone Care Team Providers Care Mobile Equipment Operator Name Role Phone Unavailable Primary Care Provider Unavailabl e Allergies Active Allergy Reactions Criticality Noted Date Comments Meperidine (Pf) Unknown High 11/11/2016 Brompheniramine-Ppa Unknown High 11/11/2016 Oxycodone-Acetaminophen Nausea And Vomiting Low 11/2016 Medications valsartan-hydro chlorothiazide (DIOVAN-HCT) 160-25 mg per tablet TAKE 1 T PO QD 0 09/23/2016 Active omeprazole (PRILOSEC) 20 MG capsule Take 20 mg by mouth daily. Active fluticasone (FLONASE) 50 mcg/actuation nasal spray 1 spray into each nostril daily. Active acetaminophen (TYLENOL) 160 mg/5 mL oral solution Take 10.2 mL (325 mg total) by mouth every 4 (four) hours as needed for fever. 473 mL 02/25/2017 Active oxyCODONE (ROXICODONE) 5 mg/5 mL oral solution Take 5 mL (5 mg total) by mouth every 4 (four) hours as needed for pain. 180 mL 02/25/2017 Active ibuprofen (ADVIL;MOTRIN) 100 mg/5 mL suspension Take 30 mL (600 mg total) by mouth every 8 (eight) hours as needed for pain. 473 mL 02/25/2017 Active senna (SENNOSIDES) 8.8 mg/5 mL Syrp oral syrup Take 10 mL by mouth nightly as needed. 1 Bottle 02/25/2017 Active promethazine (PHENERGAN) 6.25 mg/5 mL syrup Take 10 mL (12.5 mg total) by mouth 2 (two) times a day as needed for nausea. 118 mL 02/25/2017 Active HYDROcodone-suze taminophen (NORCO) 5-325 mg per tablet Take 1 tablet by mouth every 6 (six) hours as needed for pain. 30 tablet 03/05/2017 Active HYDROmorphone (DILAUDID) 2 MG tablet Take 1 tablet (2 mg total) by mouth every 6 (six) hours as needed for pain. 20 tablet 03/17/2017 Active gabapentin (NEURONTIN) 100 MG capsuleIndicati ons:Oral pain Take 1 capsule (100 mg total) by mouth nightly. 30 capsule 04/16/2017 Active Active Problems Problem Noted Date Diagnosed Date TMJ dysfunction 02/19/2017 Overview (02/19/2017): Added automatically from request for surgery [id number] Social History Tobacco Use Types Packs/Day Years Used Date Smoking Tobacco: Never Alcohol Use Standard Drinks/Week Comments Yes 0 (1 standard drink = 0.6 oz pur e alcohol) socially Comments No Sex and Gender Information Value Date Recorded Sex Assigned at Not on file Legal Sex Female 2:36 PM EDT Gender Identity Not on file Sexual Orientation Not on file Last Filed Vital Signs Vital Sign Reading Time Taken Comments Blood Pressure 130/85 08/06/2017 8:32 AM EST Pulse 87 08/06/2017 8:32 AM EST Temperature 36.8 C (98.2 F) 08/06/2017 8:32 AM EST Respiratory Rate 16 02/26/2017 10:00 AM EDT Oxygen Saturation 95% 02/26/2017 10:00 AM EDT Inhaled Oxygen Concentration - - Weight 82.6 kg (182 lb 3.2 oz) 02/25/2017 6:01 A M EDT Height 162.6 cm (5' 4 ) 02/24/2017 6:35 AM EDT Body Mass Index 31.27 02/24/2017 6:35 AM EDT Plan of Treatment Not on file Medical Devices Implanted Type Area K 12 School Professional Device Identifier Shelf Expiration Date Model / Serial / Lot Scrw 9mm 2mm Mndb Slfdrl Bn Scrw 9mm 2mm Mndb Slfdrl Bn - [id number] - [id number] Implanted:Qty : 2 on 02/24/2017 by Presley Ring MD, DDS at [facility] N/A: Mandible [employer] MICROFIXATION [id number] / [id number] / N/A Scrw 9mm 2mm Mndb Slfdrl Bn Scrw 9mm 2mm Mndb Slfdrl Bn - [id number] - [id number] Implanted:Qty : 2 on 02/24/2017 by Presley Ring MD, DDS at [facility] N/A: Maxilla BIOMET MICROFIXATION [id number] / [id number] / N/A Impl Mndb Sm Lt Fossa Uhmwpe Impl Mndb Sm Lt Fossa Uhmwpe - [id number] - [id number] Implanted:Qty : 1 on 02/24/2017 by Presley Ring MD, DDS at [facility] Left: Mandible [employer]OMET MICROFIXATION 09/15/2021 [id number] / [id number] / [id number] Impl Mndb 55mm Tmj 55mm Lft Mandib Trial - [id number] - [id number] Implanted:Qty : 1 on 02/24/2017 by Presley Ring MD, DDS at [facility] Left: Mandible [employer]OMET MICROFIXATION 02/13/2021 [id number] / [id number] / [id number] Sealant Fibri Glue Tisseel 10ml Frozen Kit Fibrin Sealant - [id number] - [id number] Implanted:Qty : 1 on 02/24/2017 by Presley Ring MD, DDS at [facility] N/A: Mandible Frederick/Internatio nal 05/09/2018 [id number] / [id number] / [id number]
--- OUTSIDE RECORDS SUMMARY | 2025-02-28 09:41 | XMS_ITS | Clinical Summary ---
Author Organization [facility] [address] [facility] Address [address] [place] [address] Phone Care Team Providers Care Umbrella Frame Maker Name Role Phone Pilar Aviles MD Primary Care Provider [phone] Medications hydrocortisone (ANUSOL-HC) 2.5 % rectal creamIndications :Hemorrhoids, unspecified hemorrhoid type Insert into the rectum 2 (two) times a day for 14 days. 30 g 1 5 Active betamethasone, augmented, (DIPROLENE-AF) 0.05 % cream APPLY TOPICALLY TO THE AFFECTED AREA TWICE DAILY FOR 14 DAYS 4 Active cephalexin (KEFLEX) 500 mg capsule Take 1 capsule (500 mg total) by mouth. for 7 days 4 Active doxycycline (MONODOX) 100 mg capsule Take 1 capsule (100 mg total) by mouth 2 (two) times a day. for 7 days 5 Active fentaNYL (DURAGESIC) 12 mcg/hr APPLY 1 PATCH TOPICALLY TO THE SKIN EVERY 72 HOURS APPLY TO THE SKIN 5 Active HYDROmorphone (DILAUDID) 2 mg tablet Take 2 tablets (4 mg total) by mouth every 4 (four) hours if needed. for pain Max Daily Amount: 24 mg Active ipratropium-albu teroL (DUONEB) 0.5-2.5 mg/3 mL nebulizer solution INHALE 3 ML VIA NEBULIZER FOUR TIMES DAILY FOR 7 DAYS 4 Active phenazopyridine (PYRIDIUM) 100 mg tablet Take 1 tablet (100 mg total) by mouth. for 3 days 5 Active nitrofurantoin (MACRODANTIN) 100 mg capsule Take 1 capsule (100 mg total) by mouth 2 (two) times a day. for 7 days Active valsartan-hydroC HLOROthiazide (DIOVAN-HCT) 160-25 mg per tablet Take 1 tablet by mouth 1 (one) time each day. Active Encounters Date Type Department Care Team Description 01/23/2025 Telephone Gastroenterology - [address] [phone] Byron Beyer PA from Last 3 Months Surgical History Surgery Date Site/Laterality Comments HYSTERECTOMY PROCEDURE: HISTORICAL HYSTERECTOMY SECTION PROCEDURE: RI DELIVERY ONLY OTHER SURGICAL HISTORY Right PROCEDURE: ---- OTHER ----; COMMENT: hip OTHER SURGICAL HISTORY Left PROCEDURE: ---- OTHER ----; COMMENT: jaw replacement OTHER SURGICAL HISTORY Bilateral PROCEDURE: ---- OTHER ----; COMMENT: breast reconstruction OTHER SURGICAL HISTORY PROCEDURE: ARTHROSCOPY PROCEDURE NEC CHOLECYSTECTOMY PROCEDURE: RI LAPAROSCOPY SURG CHOLECYSTECTOMY Social History Tobacco Use [...] 04/17/2023 9:57 AM EDT Plan of Treatment Upcoming Encounters Date Type Department Care Team (Late st Contact Info) Description 03/06/2025 8:30 AM EDT Office Visit Gastroenterology - [address] [phone] Dasha Pham PA [address] [address] Health Maintenance Due Date Last Done Comments Breast Cancer Screening 1960 DTaP,Tdap,and Td Vaccines (1 - Tdap) 02/01/1979 Cervical Cancer Screening: Pap Smear 02/01/1981 Pneumococcal Vaccine: 50+ Years (1 of 1 - PCV) 02/01/2010 Zoster Vaccines (1 of 2) 02/01/2010 Colorectal Cancer Screening: Colonoscopy 07/08/2022 Hepatitis C Screening 07/08/2022 Osteoporosis Screening (Bone Density Screening) 07/08/2022 Social Influencers of Health Screening 07/08/2022 COVID-19 Vaccine ( - season) 2024 Depression Screening 08/10/2024 Falls Risk Assessment 02/01/2025 Influenza Vaccine (#1) 2025 9, 04/29/2018, 07/14/2017, Additional history exists RSV [...] on patient's age to complete this topic Insurance MEDICARE [facility] Care Teams Umbrella Frame Maker Relationship Specialty Start Date End Date Pilar Aviles MD [address] [facility], [address] [place] [address] PCP - General Family Medicine 04/14/19
== END 2025-02-28 09:51 | disposition home or self-care (01) ==
LOC: HO.RHES 09:09
PROVIDERS: PCP Family Medicine; Visit Provider Internal Medicine Rheumatology
DX: M18.11 Unilateral primary osteoarthritis of first carpometacarpal joint, right hand (principal); I73.00 Raynaud's syndrome without gangrene
CPT/HCPCS: 99213; G2211

== ENCOUNTER 2025-05-17 08:07 | Outpatient (AMB) | payer OTHER, SELFPAY ==
--- OUTSIDE RECORDS SUMMARY | 2025-05-16 06:15 | XMS_ITS ---
Author Organization [facility] Address [address] [facility] [place] [address] Care Team Providers Care [employer] Name Role Phone Pilar Aviles MD Primary Care Provider Elian Grijalva Unavailable [phone] Allergies Allergen (clinical drug ingredient) Drug/Non Drug Allergy documented on EMR Reaction Allergy Type Onset Date Status meperidine Demerol Unknown Drug Allergy Active Dimetapp ND Unknown Drug Allergy Activ e acetaminophen / oxycodone Percocet Unknown Drug Allergy Active succinylcholine Succinylcholine Chloride paralization Drug Allergy Active REASON FOR VISIT Heel pain Medications Medication SIG (Take, Route, Frequency, Duration) Notes Start Date End Date Status fentaNYL 12 MCG/HR 1 patch to skin Transdermal Active amLODIPine Besylate winter only Active Motrin PRN 10/13/2017 Not-Takin g Omeprazole 20 MG 1 capsule Orally Once a day PRN 10/13/2017 Not-Taking Nitro-Bid 2 % as directed Transdermal aaply bid to toes; Duration: 30 days Not-Taking ProAir HFA prn Active Walking Boot/Pneumatic As directed Wear Daily; Duration: Until further notice 05/01/2023 Active Night Splint AFO - L1930 as directed Active Work Note . . . patient is disabled from work and may return to work on 07/16/20 07/03/2020 Not-Taking Acidophilus Not-Taki ng Advair HFA 250 Active Aczone Active Multivitamin Active Tretinoin 0.025 % APPLY SPARINGLY TO FACE QHS FOR ACNE AND PHOTOAGING External; Duration: 20 Active Valsartan-hydroCHLOROt hiazide 160-25 MG 1 tablet Orally Once a day 10/13/2017 Active Align Prebiotic-Probiotic Active Social History Tobacco Use: Social History Observation Description Date Details (start date - stop date) Never Smoker NA - NA Tobacco use other than smoking: Question Answer Notes Are you an other tobacco user? No Tobacco Control (Standard) Question Answer Notes Tobacco use: Nonsmoker Additional Findings: Tobacco non-user Current no nsmoker AUDIT-C (Standard) Question Answer Notes Did you have a drink containing alcohol in the p ast year? No Points 0 Interpretation Negative Vital Signs Blood pressure systolic 120 mm Hg 05/16/20 25 Blood pressure diastolic 80 mm Hg 025 Height 5ft 4in in 05/16/2025 Weight 154 lbs 05/16/2025 BMI 26.43 kg/m2 05/16/2025 Procedures Procedure Date Ordered Date Performed Result Body Sit e ,[id number] TENDON SHEATH/LIGAMENT 05/16/2025 N/A Encounters Encounter Location Date Provider Diagnosis [facility] [place] [address] [place] [address] 05/16/2025 Elian Reyes Plantar fasciitis M72.2 Assessments Encounter Date Diagnosis (ICD Code) Assessment Notes Treatment Notes Treatment Clinical Notes Section Notes 05/16/2025 Plantar fasciitis (ICD-10 - M72.2) Resistant to previous conservative treatment Patient Educated with: RICE THERAPY.pdf (RICE THERAPY.pdf) Patient Educated with: INJECTIONTHERA PY.pdf (INJECTIONTHER APY.pdf) Plan Of Treatment Treatment Notes Assessment Notes Plantar fasciitis Patient Educated wit h: RICE THERAPY.pdf (RICE THERAPY.pdf) Patient Educated with: INJECTIONTHERAPY.pdf (INJECTIONTHERAPY.pdf) Pending Test Test Name Order Date ,[id number] TENDON SHEATH/LIGAMENT 1 Next Appt Details Follow Up: prn, Reason: Procedure Notes * Category Sub-Category Detail Notes Injection Tendon Sheath or Fascia , J 701 Injection 3, LEFT foot, - Plantar Fascia w/ mixture of Celestone Soluspan 3mg and 1cc 1 percent Xylocaine Plain anes. utilizing aseptic technique. The patient tolerated the procedure well. A dry sterile dressing was applied. Post injection instructions were dispensed, verbally discussed, and confirmed understood by the patient. SHORT TERM GOAL - I explained that a steroid and local anesthetic injection is to relieve pain and inflammation in order to SENIOR CARE GOAL - properly improve function and restore the patient to their prior pain-free activity. 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 Patient relates post-procedural pain assessment improved at ( 0-1) out of 10, VACCINATION: Confirmed with patient the absence of vaccination either 2 weeks before or after todays cortisone injection Progress Notes * Aileen MUNGUIARossyB:1960 (65 yo F)Acc No.[id number]:05/16/2025 Progress Notes Patient: Lisa TERAN Provider: Juan Reyes DPM :1960 A ge:65 Y S ex:Female Date:05/16/2025 Address:[place] [address], [facility], [facility] Pcp:Pilar Aviles MD Subjective: * Chief Complaints: * H eel pain * HPI: H eel pain: Location: P roximal plantar aspect of Heel, LEFT. Treatments: r est/alter normal daily activity, change in shoes, custom orthoses, medication ( Voltaren gel, Fentanyl patch ) - CANNOT TAKE NSAIDS DUE TO COLON PROBLEMS, stretching, deep tissue massage, AFO-nightsplint (2022), Home TENS, corticosteriod injection (2), Custom compounded topical anti-inflammatory cream. Severity/Quality: P re-injection procedure pain assessment - ( 8) out of 10. Misc: P atient states previous conservative therapy has not provided acceptable relief. Despite previous treatments/efforts, patient continues to relate substantial pain and significant functional disability during activity , The patient denies to have received any vaccine therapy within the past month. * ROS: G eneral/Constitutional: Nausea d enies, denies. V omiting d enies, denies.?Hunger Thirst d enies, denies. L oss appetite d enies, denies. C hills d enies, denies. F atigue d enies, denies. F ever d enies, denies. N ight Sweats denies, denies. U nexplained weight loss d enies, denies. O phthalmologic: Blurred vision d enies. R ed eye d enies. ? H EENTM: Dentures d enies. D izziness d enies. G lasses/contacts d enies. R etinopathy d enies. B lurred/double vision d enies. T MJ?denies. D ischarge/drainage d enies. I mplants d enies. H armaan of hearing denies. D ifficulty chewing/swallowing/speaking d enies. N ose bleeds d enies.?Sore mouth d enies. S wollen glands d enies. R espiratory: Patient denies c ough, hemoptysis, pain with inspiration, chest pain, shortness of breath at rest, shortness of breath with exertion. O n Oxygen d enies. P neumonia/pleurisy d enies. B ronchitis d enies. E mphysema d enies. Coughing d enies. C ough blood d enies. S hortness of breath d enies. W heezing d enies. C ardiovascular: Patient denies c hest pain at rest, chest pain with exertion, palpitations. P acemaker d enies. M HIGHWAY ENGINEERING TECHNICIAN d enies. W PW d enies. C HF?denies. H eart attack d enies. S eptal defect d enies. R apid beat d enies. C hest pain d enies. A trial Fib. d enies. M urmur/Palpitations d enies.? G astrointestinal: Hemorrhoids d enies. S tomach/Abdominal pain d enies, denies. D ark blood stool d enies, denies. I rritable bowel d enies, denies.?Constipation d enies, denies. D iarrhea d enies, denies. V omiting d enies, denies. H ematology: Swelling d enies. B ruising d enies. B leeding problem d enies, denies. G enitourinary: Blood urine d enies. F requent/Painfu/urination/bladder control d enies. K idney stones d enies. I nfection (UTI) d enies. N ephropathy d enies. M usculoskeletal: Patient denies a ny other musculoskeletal complaints. H ammertoes a dmits. B unions d enies. S coliosis/kyphosis d enies. M uscle cramps / walking d enies. G eneralized aches and pains d enies. W eakness d enies. P eripheral Vascular: Patient denies c old extremities. I nteg.: Baker d enies. S cars d enies. C orns/calluses?denies. I ngrown nails d enies. P ainful nails d enies. R ashes d enies. N eurologic: Difficulty sleeping d enies, denies. B ipolar d enies. B rain disorder d enies. B alance trouble d enies. C onfusion d enies, denies. F ainting/blackouts d enies. H eadache d enies. T remors d enies.? * Medical History: * Surgical History: t onsillectomy 1976wisdom teeth extraction 1977cesarean section 02/1985hysterectomy 10/1987rt breast sx 06/1988lumpectomy, right breast 06/1992oopherectomy 03/1993Tummy tuck breast reconstruction leg surgery Jaw replacement 2017rotator cuff, muscle repair 11/2021gall bladder 05/2022lipoma, left hamstring olonectomy ight hip replacement, 05/03/23/ left hip replacement 05/2023 sigmoid colon removal, gall bladder removal * Hospitalization/Major Diagno stic Procedure: [facility], bladder infection 09/2019[facility]- MRI 11/30/20[facility]- rsv, covid * Family History: M other: , diagnosed with Unspecified cerebral artery occlusion with cerebral infarction, Family history of arthritis. F ather: , diagnosed with Other malignant neoplasm of unspecified site, Unspecified essential hypertension. S pouse: alive. * Social History: T obacco Use: T obacco use other than smoking A re you an other tobacco user? N o Tobacco Control (Standard) T obacco use: N onsmoker A dditional Findings: Tobacco non-user C urrent nonsmoker M iscellaneous: C affeine: yes, frequency: 1 cup. Children: yes. Exercise: yes, bike riding, PT. Marital status: . Occupation: Retired. D rug/Alcohol: A SHERI-C (Standard) D id you have a drink containing alcohol in the past year? N o P oints 0 I nterpretation N egative * Medications: T akingfentaNYL 12 MCG/HR Patch 72 Hour 1 patch to skin Transdermal amLODIPine Besylate , Notes to Pharmacist: winter onlyAlign Prebiotic-Probiotic Advair HFA , Notes to Pharmacist: 250Aczone Multivitamin Tretinoin 0.025 % Cream APPLY SPARINGLY TO FACE QHS FOR ACNE AND PHOTOAGING External Valsartan-hydroCHLOROthiazide 160-25 MG Tablet 1 tablet Orally Once a day ProAir HFA , Notes to Pharmacist: prnWalking Boot/Pneumatic As directed Wear Daily Night Splint AFO - L1930 as directed Taking fentaNYL 12 MCG/HR Patch 72 Hour 1 patch to skin Transdermal Taking amLODIPine Besylate , Notes to Pharmacist: winter onlyTaking Align Prebiotic-Probiotic Taking Advair HFA , Notes to Pharmacist: 250Taking Aczone Taking Multivitamin Taking Tretinoin 0.025 % Cream APPLY SPARINGLY TO FACE QHS FOR ACNE AND PHOTOAGING External Taking Valsartan-hydroCHLOROthiazide 160-25 MG Tablet 1 tablet Orally Once a day Taking ProAir HFA , Notes to Pharmacist: prnTaking Walking Boot/Pneumatic As directed Wear Daily Taking Night Splint AFO - L1930 as directed Not-Taking/PRNWork Note . . . . patient is disabled from work and may return to work on 07/16/20 Acidophilus Motrin , Notes to Pharmacist: PRNOmeprazole 20 MG Capsule Delayed Release 1 capsule Orally Once a day , Notes to Pharmacist: PRNNitro-Bid 2 % Ointment as directed Transdermal aaply bid to toes Medication List reviewed and reconciled with the patientNot-Taking/PRN Work Note . . . . patient is disabled from work and may return to work on 07/16/20 Not-Taking/PRN Acidophilus Not-Taking/PRN Motrin , Notes to Pharmacist: PRNNot-Taking/PRN Omeprazole 20 MG Capsule Delayed Release 1 capsule Orally Once a day , Notes to Pharmacist: PRNNot-Taking/PRN Nitro-Bid 2 % Ointment as directed Transdermal aaply bid to toes Medication List reviewed and reconciled with the patient * Allergies: P ercocetDemerolDimetapp NDSuccinylcholine Chloride: paralizationyes[Allergies Verified] Objective: * Vitals: H t: 5ft 4in, Wt:154, BMI:26.43, Shoe size: 8.5, BP:120/80mm Hg, Ht-cm: 162.56 cm, Wt-k.85 kg. * Examination: H eel Pain: INSPECTION REVEALS: P ain on Palpation to Plantar Fascia med. and central bands, intrinsic musc., infra-calcaneal bursa, and med calc tubercle, LEFT foot. Assessment: * Assessment: 1. P lantar fasciitis - M72.2 (Primary) S pecify :LEFT N otes :Resistant to previous conservative treatment Plan: * Treatment: * Procedures: I njection: Tendon Sheath or Fascia 2 0550, J0702 Injection3, LEFT foot, - Plantar Fascia w/ mixture of Celestone Soluspan 3mg and 1cc 1 percent Xylocaine Plain anes. utilizing aseptic technique. The patient tolerated the procedure well. A dry sterile dressing was applied. Post injection instructions were dispensed, verbally discussed, and confirmed understood by the patient. SHORT TERM GOAL - I explained that a steroid and local anesthetic injection is to relieve pain and inflammation in order to SENIOR CARE GOAL - properly improve function and restore the patient to their prior pain-free activity. 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 Patient relates post-procedural pain assessment improved at ( 0-1) out of 10, VACCINATION: Confirmed with patient the absence of vaccination either 2 weeks before or after todays cortisone injection. * Procedure Codes: 2 0550 INJ TENDON SHEATH/LIGAMENT, Modifiers: LT J0702 INJ BETAMETHSN ACTAT&SOD PHOSPH-3MG * Preventive Medicine: Counseling: H eel pain: C ont Custom Topical pain control compound combination therapy as prescribed. P .R.I.C.E.: T he patient was counseled on the use of P.R.I.C.E. and NSAIDS (if well tolerated) to aid in the recovery from their painful condition. S teriod Injection: I explained that a steroid and local anesthetic injections are administered to relieve pain and inflammation and thereby meant to improve function. I explained the possible complications including but not limited to signs/symptoms of steroid flare, infection, bruising, atrophy, discoloration of skin, change/deviation in toe position, and that additional injections may be necessary, cortisone post- injection informative educational handout was dispensed to and reviewed with the patient, In order to prevent any compromise of an effective immune response, it was recommended the patient refrain from any vaccine therapy for the next month. Patient verbally confirmed understanding the previously mentioned protocol. * Follow Up: p rn * Images: * Sign off status: Completed true * Provider: Juan Reyes DPM Date: Generated for Ame ng/Fidel/Kelly on: 08:18 AM EDT History and Physical Notes * HPI (History of Present Illness) Category Sub-Category Detail Notes Category Not es Heel pain Severity/Quality: Pre-injection procedure pain assessment - ( 8) out of 10 Location: Proximal plantar asp ect of Heel, LEFT Treatments: rest/alter normal da eleni activity, change in shoes, custom orthoses, medication ( Voltaren gel, Fentanyl patch ) - CANNOT TAKE NSAIDS DUE TO COLON PROBLEMS, stretching, deep tissue massage, AFO-nightsplint (2022), Home TENS, corticosteriod injection (2), Custom compounded topical anti-inflammatory cream Misc: Patient states previ ous conservative therapy has not provided acceptable relief. Despite previous treatments/efforts, patient continues to relate substantial pain and significant functional disability during activity , The patient denies to have received any vaccine therapy within the past month Examination Category Sub-Category Detail Notes Category Not es Heel Pain INSPECTION REVEALS: Pain on Palp ation to Plantar Fascia med. and central bands, intrinsic musc., infra-calcaneal bursa, and med calc tubercle, LEFT foot
[2025-05-17 08:11] VITALS: BP 140/100; PULSE 97; O2SAT 98; BMI 27.5
--- NOTE | 2025-05-17 08:11 | MHC.OFFVIS ---
Vital Signs 05/17/25 08:11 Height 5 ft 3.5 in Weight 157 lb 13.616 oz BMI 27.5 BP 140/100 H Blood Pressure Location Lt brachial Position Sitting Pulse 97 Pulse Source Pulse Oximeter Pulse Oximetry (%) 98 Oxygen Delivery Method Room Air Comment 140/110 right arm bp Intake Visit Reasons: F/u early MAY Intake Note: Patient presents follow up on Raynaud's and arthritis today. Accompanied by: Self / Same As Patient Allergies metoclopramide (From Reglan) Allergy (Mild, Verified 05/17/25 08:13) unable to breathe acetaminophen (From PERCOCET) Allergy (Unknown, Verified 05/17/25 08:13) VOMITING meperidine (From DEMEROL) Allergy (Unknown, Verified 05/17/25 08:13) CARDIAC ARREST morphine (MORPHINE) Allergy (Unknown, Verified 05/17/25 08:13) ITCHINESS AND HIVES oxycodone (From PERCOCET) Allergy (Unknown, Verified 05/17/25 08:13) VOMITING succinylcholine Adverse Reaction (Severe, Verified 05/17/25 08:13) PARALYSIS brompheniramine (From Dimetapp Cold-Allergy (PE)) Adverse Reaction (Mild, Verified 05/17/25 08:13) Drowsy phenylephrine (From Dimetapp Cold-Allergy (PE)) Adverse Reaction (Mild, Verified 05/17/25 08:13) Drowsy HPI HPI F/u early MAY: Details: She feels well. She has been using a compounded topical agent prescribed by her medical laboratory technologist Dr. Gray with benefit PRN. Raynaud's syndrome is not active. She has amlodipine at home but is not using it. It expires in June. PFSH Medical History Gout Iliotibial band tendinitis of right side Bilateral papilloma of breast RSV (acute bronchiolitis due to respiratory syncytial virus) COVID-19 Asthma Complication of systemic hypertensive disorder History of mammogram Traumatic rupture of rotator cuff of left shoulder History of open sigmoidectomy Diverticulitis Surgical History Hx of breast reconstruction History of lumpectomy of both breasts History of hysterectomy History of colonoscopy History of rotator cuff surgery Hx of cholecystectomy History of right hip replacement History of left hip replacement H/O hernia repair Social History Second Hand Smoke Exposure: No Physical Exam Vital Signs: Last Vital Signs Pulse 97 05/17/25 08:11 BP 140/100 H 05/17/25 08:11 Pulse Ox 98 05/17/25 08:11 Oxygen Delivery Method Room Air 05/17/25 08:11 BMI result Body Mass Index 27.5 Const Other: General: Comfortable Skin: No lesions seen or discoloration of fingertips. No digital ulcers. MSK: Squaring of right CMC present without tenderness of CMCs. No synovitis. Assessment & Plan Assessment & Plan (1) Arthritis of carpometacarpal (CMC) joint of right thumb: Comment: Bilateral CMC pain is controlled with last set of cortisone injections 11/29/2024 Code(s): M18.11 - Unilateral primary osteoarthritis of first carpometacarpal joint, right hand Category: Medical Plan: Return to clinic as needed (2) Raynaud disease without gangrene: Comment: Controlled at this time with conservative management. She is hypertensive including with rechecking blood pressure. Code(s): I73.00 - Raynaud's syndrome without gangrene Category: Medical Plan: Continue conservative management She will call office if she has a flare. I have asked her to follow up with PCP for hypertensive management Return to clinic PRN Coding Level of Care Code Est Pt Level 3 (56757) Complex EM visit Add On G2211 Diagnoses Arthritis of carpometacarpal (CMC) joint of right thumb M18.11 Raynaud disease without gangrene I73.00
--- OUTSIDE RECORDS SUMMARY | 2025-05-17 08:17 | XMS_ITS | Encounter Summary ---
Author Organization [facility] Address [address] [place] [address] [place] [id number] Phone Care Team Providers Care Academic Support Center Director Name Role Phone Pilar Aviles MD Primary Care Provider Encounter Details Date Type Department Care Team (Late st Contact Info) Description 12/17/2017 Ancillary Orders [facility] Xray - [place] [address] [place] [id number] Jeet Kelly DO [address] [place] [address] Orthopedics & Sports Medicine, [place] [address] [email or web address] Left hip pain Social History Tobacco Use [...] thigh documented in this encounter Care Teams Academic Support Center Director Relationship Specialty Start Date End Date Pilar Aviles MD [address] [place] [id number] PCP - General 08/13/17 documented as of this encounter Additional Source Comments The information contained in this document represents components of the legal health record. It is not the complete legal health record.[facility]
--- OUTSIDE RECORDS SUMMARY | 2025-05-17 08:18 | XMS_ITS | Clinical Summary ---
Author Organization [facility] Address [address] [place] [phone] Phone Care Team Providers Care Medical Art Therapist Name Role Phone Pilar Aviles MD Primary [...] 11/11/2016 Succinylcholine 08/19/2021 Succinylcholine Chloride 12/10/2020 Medications valsartan-hydro CHLOROthiazide (DIOVAN-HCT) 160-25 mg per tablet Take 1 tablet by mouth daily. 8 Active ALPRAZolam (XANAX) 0.5 MG tablet 0.25 mg nightly at bedtime as needed. 0 8 Active PROAIR HFA 90 mcg/actuation inhaler INHALE 2 PUFFS EVERY 4 HOURS NEEDED FOR WHEEZING 0 Active dapsone (ACZONE) 5 % topical gel APPLY DAILY FOR ACNE 0 Active fluticasone propion-salmete roL (ADVAIR DISKUS) 250-50 mcg/dose DISKUS See Instructions, rinse mouth and throat after use 1 inhalation bid, # 3 each, 3 Refills, Maintenance, 03/20/21 14:36:00 EDT, Inhaler, [id number], Partial fill upon patient request if the prescription is for a schedule II opioid drug... 1 Active fluticasone propionate (FLONASE) 50 mcg/actuation nasal spray 1 spray by Nasal route daily. Active cephalexin (KEFLEX) 500 MG capsule Take 1 capsule by mouth 3 (three) times a day. 2 Active amLODIPine (NORVASC) 2.5 MG tablet Take 2.5 mg by mouth every other day. 2 Active potassium chloride (K-TAB) 20 mEq TbER ER tablet Take 1 tablet by mouth daily. 3 Active Active Problems Problem Noted Date Diagnosed [...] Answer Date Recorded No 01/05/2023 No 01/05/2023 Reliable internet access at home? Not on file 01/05/2023 Device with a working camera? Not on file Comments No Sex and Gender Information Value Date Recorded Sex Assigned at Not on file Legal Sex Female 9:48 PM EDT Gender Identity Not on file Sexual Orientation Not on file Last Filed Vital Signs Vital Sign Reading Time Taken Comments Blood Pressure 127/88 11/14/2021 6:23 PM EDT Pulse 102 11/14/2021 6:23 PM EDT Temperature 36.2 C (97.2 F) 11/14/2021 6:23 PM EDT Respiratory Rate 18 11/14/2021 6:23 PM EDT [...] 02/01/1978 HIV ONE-TIME SCREENING (18-65 YEARS) 02/01/1978 MAMMOGRAM 2000 COLOGUARD 02/01/2005 COLONOSCOPY 02/01/2005 COLORECTAL CANCER SCREENING 02/01/2005 FIT TEST 02/01/2005 FOBT 02/01/2005 SIGMOIDOSCOPY 02/01/2005 VIRTUAL COLONOSCOPY 02/01/2005 ZOSTER VACCINES (1 of 2) 02/01/2010 PNEUMOCOCCAL VACCINES (50+ years) (2 of 2 - PCV) 09/17/2018 09/17/2017 OSTEOPOROSIS SCREENING INITIAL (ONE-TIME) 02/01/2025 INFLUENZA VACCINE (#1) 2025 , 07/05/2021, 04/14/2019, Additional history exists COVID-19 VACCINE (2024- season) 2025 06/02/2022, 07/05/2021, 11/12/2020 Adult Td,Tdap Booster 09/17/2027 [...] age to complete this topic MENINGOCOCCAL VACCINES (B) Aged Out N o longer eligible based on patient's age to complete this topic Medical Devices Implanted Type Area Foreign Clerk Device Identifier Shelf Expiration Date Model / Serial / Lot [place] Suture 4.5mm Arthroscopy Reelx Stt Peek Ss Core Knotless Shapr Tip Expandable Bx/5ea - [id number] Implanted:Qty: 1 on 11/14/2021 by Jeet Kelly DO at [facility] Right: Shoulder [employer] 01/14/2023 [id number] / / [id number] [place] [address] [place] [address] [facility] Address: [address] [address] Care Teams Medical Art Therapist Relationship Specialty Start Date End Date Pilar Aviles MD [address] [place] [address] PCP - General 08/13/17 Additional Source Comments The information contained in this document represents components of the legal health record. It is not the complete legal health record.[facility]
--- OUTSIDE RECORDS SUMMARY | 2025-05-17 08:18 | XMS_ITS | Clinical Summary ---
Author Organization [facility] [address] [facility] Address [address] [place] [address] Phone Care Team Providers Care Logger Name Role Phone Pilar Aviles MD Primary Care Provider Allergies Active Allergy Reactions Criticality Noted Date Comments Acetaminophen Nausea And Vomiting 05/12/2022 Brompheniramine Maleate Unknown 05/12/2022 Meperidine Hcl Anaphylaxis,Hives High 04/17/2022 Metoclopramide Hcl Palpitations 07/22/2022 Morphine Shortness of breath High 06/10/2022 Oxycodone Hcl Nausea And Vomiting 05/12/2022 Phenylpropanolamine Hcl Psychiatric 05/12/2022 Phenyltoloxamine-Acetamino phen 04/17/2022 Succinylcholine High 04/17/2022 Other Reaction(s): RESP DISTRESS AND PROLONGED PARALYZATION Medications hydrocortisone (ANUSOL-HC) 2.5 % rectal creamIndications:H emorrhoids, unspecified hemorrhoid type Insert into the rectum [...] pain Max Daily Amount: 24 mg Active ipratropium-albute roL (DUONEB) 0.5-2.5 mg/3 mL nebulizer solution INHALE 3 ML VIA NEBULIZER FOUR TIMES DAILY FOR 7 DAYS 4 Active phenazopyridine (PYRIDIUM) 100 mg tablet Take 1 tablet (100 mg total) by mouth. for 3 days 5 Active nitrofurantoin (MACRODANTIN) 100 mg capsule Take 1 capsule (100 mg total) by mouth 2 (two) times a day. for 7 days 5 Active valsartan-hydroCHL OROthiazide (DIOVAN-HCT) 160-25 mg per tablet Take 1 tablet by mouth 1 (one) time each day. Active albuterol 2.5 mg /3 mL (0.083 %) nebulizer solution INHALE 3ML VIA NEBULIZER EVERY 6 HOURS FOR UP TO 30 DAYS 4 Active ALPRAZolam (XANAX) 2 mg tablet Take 1 tablet (2 mg total) by mouth. Active ALPRAZolam (XANAX) 0.5 mg tablet 5 Active fluticasone (VERAMYST) 27.5 mcg/actuation nasal spray Administer 2 sprays into affected nostril(s). Active ondansetron ODT (ZOFRAN-ODT) 4 mg disintegrating tablet Take 1 tablet (4 mg total) by mouth every 8 (eight) hours if needed. 2 Active potassium chloride (KLOR-CON) 20 mEq packet Take 20 mEq by mouth. Active valsartan (DIOVAN) 160 mg tablet Take 1 tablet (160 mg total) by mouth. Active Active Problems Problem Noted Date Diagnosed Date H/O partial resection of colon 03/06/2025 Overview (03/06/2025): Sigmoid resection secondary to diverticulitis in July [address] 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 Anxiety 03/06/2025 Fibromyalgia 03/06/2025 Chronic low back pain 03/06/2025 HTN (hypertension) 03/06/2025 Encounters Date Type Department Care Team Description 03/06/2025 8:30 AM EDT Office Visit Gastroenterology - [address] [place] [address] Dasha Pham PA External hemorrhoid (Primary Dx) from Last 3 Months Surgical History Surgery Date Site/Laterality Comments HYSTERECTOMY PROCEDURE: HISTORICAL HYSTERECTOMY SECTION PROCEDURE: [place] DELIVERY ONLY OTHER SURGICAL HISTORY Right PROCEDURE: ---- OTHER ----; COMMENT: hip OTHER SURGICAL HISTORY Left PROCEDURE: ---- OTHER ----; COMMENT: jaw replacement OTHER SURGICAL HISTORY Bilateral PROCEDURE: ---- OTHER ----; COMMENT: breast reconstruction OTHER SURGICAL HISTORY PROCEDURE: ARTHROSCOPY PROCEDURE NEC CHOLECYSTECTOMY PROCEDURE: [place] LAPAROSCOPY SURG CHOLECYSTECTOMY COLONOSCOPY 03/10/2020 - 04/09/2020 COLONOSCOPY 01/08/2022 - 02/06/2022 ESOPHAGOGASTRODUODENOSCOPY 01/08/2022 - 02/06/2022 Social History Tobacco Use Types Packs/Day Years Used Date Smoking Tobacco: Never Alcohol Use Standard Drinks/Week Comments Yes 0 (1 standard drink = 0.6 oz pur e alcohol) rare Comments Unknown Sex and Gender Information Value [...] - Inhaled Oxygen Concentration - - Weight 73.5 kg (162 lb) 03/06/2025 8:32 AM EDT Height 162.6 cm (5' 4 ) 03/06/2025 8:32 AM EDT Body Mass Index 27.81 03/06/2025 8:32 AM EDT Plan of Treatment Health Maintenance Due Date Last Done Comments Breast Cancer Screening 1960 Colorectal Cancer Screening: Colonoscopy 1960 Cervical Cancer Screening: Pap Smear 02/01/1981 Zoster Vaccines (1 of 2) 02/01/2010 Pneumococcal Vaccine: 50+ Years (2 of 2 - PCV) 09/17/2018 09/17/2017 RSV Immunization Adult Patients (1 - Risk 60-74 years 1-dose series) 2020 Cholesterol Screening (Lipid Panel) 07/08/2022 Hepatitis C Screening 07/08/2022 Osteoporosis Screening (Bone Density Screening) 07/08/2022 Social Influencers of Health Screening 07/08/2022 Depression Screening 08/10/2024 Falls Risk Assessment 02/01/2025 Hypertension/CHF/CAD Annual BMP Blood Test 03/06/2025 COVID-19 Vaccine ( season) 2025 06/02/2022, 07/05/2021, 11/12/2020 Influenza Vaccine (#1) 2025 , 07/05/2021, 04/14/2019, Additional history exists DTaP,Tdap,and Td Vaccines (3 - Td or Tdap) 09/17/2027 09/17/2017, 01/03/2008 HIB Vaccines Aged Out No longer eligi [...] age to complete this topic Insurance MEDICARE [facility] [address] [place] [address] Care Teams Logger Relationship Specialty Start Date End Date Pilar Aviles MD [address] [facility] [place] [address] PCP - General Family Medicine 04/14/19
--- OUTSIDE RECORDS SUMMARY | 2025-05-17 08:18 | XMS_ITS | Encounter Summary ---
Author Organization [facility] Address [address] [place] [address] [place] [address] Phone Care Team Providers Care Porcelain Buildup Assistant Name Role Phone Pilar Aviles MD Primary Care Provider Encounter Details Date Type Department Care Team (Late st Contact Info) Description 11/14/2021 Procedure Pass OR Admitting Dept - Virtual Department [address] [place] [address] Social History Tobacco Use Types Packs/Day Years Used Date Smoking Tobacco: Never Smokeless Tobacco: Never Alcohol Use Standard Drinks/Week Comments Yes 0 (1 standard drink = 0.6 oz pur e alcohol) couple drinks per month Comments No Sex and Gender Information Value Date Recorded Sex Assigned at Not on file Legal Sex Female 9:48 PM EDT Gender Identity Not on file Sexual Orientation Not on file documented as of this encounter Plan of Treatment Not on file documented as of this encounter Visit Diagnoses Not on filedocumented in this encounter Care Teams Porcelain Buildup Assistant Relationship Specialty Start Date End Date Pilar Aviles MD [address] [place] [id number] PCP - General 08/13/17 documented as of this encounter Additional Source Comments The information contained in this document represents components of the legal health record. It is not the complete legal health record.[facility]
--- OUTSIDE RECORDS SUMMARY | 2025-05-17 08:18 | XMS_ITS | Encounter Summary ---
Author Organization [facility] Address [address] [place] [address] [place] [address] Phone Care Team Providers Care Computer Tester Name Role Phone Pilar Aviles MD Primary Care Provider Encounter Details Date Type Department Care Team (Late st Contact Info) Description 12/17/2017 Ancillary Orders [facility] [address] [place] [address] Jeet Kelly DO [address] [place] [address] [facility] [place] [address] Social History Tobacco Use Types Packs/Day Years [...] on filedocumented in this encounter Care Teams Computer Tester Relationship Specialty Start Date End Date Pilar Aviles MD [address] [place] [phone] PCP - General 08/13/17 documented as of this encounter Additional Source Comments The information contained in this document represents components of the legal health record. It is not the complete legal health record.[facility]
--- OUTSIDE RECORDS SUMMARY | 2025-05-17 08:18 | XMS_ITS | Encounter Summary ---
Author Organization [facility] r Address [address] [place] [address] Phone Care Team Providers Care Retail Financial Analyst Name Role Phone Unavailable Primary Care Provider Unavailabl e Encounter Details Date Type Department Care Team (Late st Contact Info) Description 11/20/2016 Prep for Surgery [facility] [address] [facility] [address] [place] [phone] Yanira Dinh DMD Social History Tobacco Use Types Packs/Day Years Used Date Smoking Tobacco: Never Alcohol Use Standard Drinks/Week Comments No 0 (1 standard drink = 0.6 oz pur e alcohol) Comments Unknown Sex and Gender Information Value Date Recorded Sex Assigned at Not on file Legal Sex Female 2:36 PM EDT Gender Identity Not on file Sexual Orientation Not on file documented as of this encounter H&P Notes * Ole June MD, DMD, SUZI - 11/20/2016 11:47 AM EDT [facility] H and P Note HPI: Lisa Payan is a 56 y.o. female with chief complaint of left sided TMJ pain who presents on referral from Dr. Munson of [place], [place]. Patient reports left sided TMJ pain began in december 2015. She denies any inciting event other than emotional distress due to parents passing. She reports associated ear infections for which she was evaluated by a local ENT and treated with abx with resolution. She also reports some episodes of occasional vertigo since onset of TMJ pain symptoms. She denies headaches or facial paraesthesia or weakness. She reports that her bite has changed since onset of pain and that she contacts right side more heavily. She has tried an occlusal splint, NSAIDs, and soft diet without symptom resolution. 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 Problem List: There are no active problems to display for this patient. Past Medical, Family and Social History: Past Medical History: Past Medical History: Diagnosis Date ??? Angiomyolipoma of kidney ??? GERD (gastroesophageal reflux disease) ??? Hypertension ??? Squamous cell carcinoma, leg Surgical History: Past Surgical History: Procedure Laterality Date ??? colon polyp removal 2015 ??? HYSTERECTOMY ??? LEG SURGERY 2013 right leg surgery ??? REDUCTION MAMMAPLASTY 2005 ??? right breast lumpectomy 1991 ??? TONSILLECTOMY Medications: Prior to Admission medications Medication Sig Start Date End Date Taking? Authorizing Provider ibuprofen (ADVIL,MOTRIN) 800 MG tablet TK 1 T PO TID WITH FOOD 10/16/16 PROVIDER, HISTORICAL omeprazole (PRILOSEC) 20 MG capsule Take 20 mg by mouth daily. PROVIDER, HISTORICAL valsartan-hydrochlorothiazide (DIOVAN-HCT) 160-25 mg per tablet TAKE 1 T PO QD 09/23/16 PROVIDER, HISTORICAL Allergies: Allergies Allergen Reactions ??? Demerol (Pf) [Meperidine (Pf)] Unknown ??? Dimetapp (Brompheniramine-Ppa) [Brompheniramine-Ppa] Unknown ??? Percocet [Oxycodone-Acetaminophen] Nausea And Vomiting Family History: No family history on file. Social History: Social History Social History ??? Marital status: Spouse name: N/A ??? Number of children: N/A ??? Years of education: N/A Occupational History ??? Not on file. Social History Main Topics ??? Smoking status: Never Smoker ??? Smokeless tobacco: Not on file ??? Alcohol use No ??? Drug use: No ??? Sexual activity: Not on file Other Topics Concern ??? Not on file Social History Narrative ??? No narrative on file Review of Systems Constitutional: Negative. HENT: Positive for dental problem, ear pain and tinnitus. Negative for facial swelling, mouth sores, sinus pressure, sore throat and trouble swallowing. Respiratory: Negative. Cardiovascular: Negative. Genitourinary: Negative. Musculoskeletal: Negative. Negative for neck pain. Skin: Negative. Neurological: Negative. Hematological: Negative. Psychiatric/Behavioral: Negative. Physical Exam: Constitutional: A&O, NAD, Appears well-developed and well-nourished. HENT: Head: Normocephalic and atraumatic. Ear: hearing grossly intact Nose: Nose normal. Eyes: EOM are normal. Pupils are equal, round, and reactive to light. Neck: Normal range of motion. Neck supple. EOE: No gross swelling, scars, or asymmetries. No trismus IOE: Oropharynx clear, uvula midline, tongue/floor of mouth non-elevated. No gross pigmented, ulcerated or exophytic lesions noted. Dentition: Premature contact on right posterior on closing, but bilateral posterior contact in MIP TMJ: Tender over left TMJ, non tender over right. No click or popping appreciated. ANGELY >35mm butpain on left. Tender over left masseter. CV: RRR Resp: No respiratory distress, no accessory muscle us GI/Abd: soft, nondistended, nontender Extremities: normal mobility, no deformities Psych: Alert and Oriented x 3, affect and mood appropriate, normal interaction Imaging: CT scan TMJ at OSH: Degenerative cystic changes at left condylar head noted Assessment/Plan: Lisa Payan is a 56 y.o. female who presents with left TMJ pain. 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 Nature of TMJ pain/dysfunction and possible treatment options were discussed with patient. Recommended made to proceed with Arthroscopy of left TMJ at this time. After discussion with the patient it was decided to have the procedure performed under general anesthesia in the OR. NPO and escort instructions explained to the patient. Risks, benefits, and complications of the procedure discussed. Alternative procedures discussed including no treatment. -NPO after midnight -Ancef OC/OR -LR continuous infusion Ole June MD, ESTEBAN, SUZI documented in this encounter Plan of Treatment Not on file documented as of this encounter Visit Diagnoses Not on filedocumented in this encounter
--- OUTSIDE RECORDS SUMMARY | 2025-05-17 08:18 | XMS_ITS | Encounter Summary ---
Author Organization [facility] r Address [address] [place] [address] Phone Care Team Providers Care Veterinary Epidemiologist Name Role Phone Unavailable Primary Care Provider Unavailabl e Encounter Details Date Type Department Care Team (Late st Contact Info) Description 02/19/2017 Prep for Surgery Oral Surgery - [facility] [address] [place] [address] [address] [place] [phone] Francis Durham DDS Social History Tobacco Use Types Packs/Day Years Used Date Smoking Tobacco: Never Alcohol Use Standard Drinks/Week Comments Yes 0 (1 standard drink = 0.6 oz pur e alcohol) Comments No Sex and Gender Information Value Date Recorded Sex Assigned at Not on file Legal Sex Female 2:36 PM EDT Gender Identity Not on file Sexual Orientation Not on file documented as of this encounter Plan of Treatment Not on file documented as of this encounter Visit Diagnoses Not on filedocumented in this encounter
--- OUTSIDE RECORDS SUMMARY | 2025-05-17 08:18 | XMS_ITS | Encounter Summary ---
Author Organization [facility] Address [address] [place] [address] [place] [address] Phone Care Team Providers Care Internal Medicine Physician Name Role Phone Pilar Aviles MD Primary Care Provider Encounter Details Date Type Department Care Team (Late st Contact Info) Description 11/04/2021 Ancillary Orders [facility],Outside Imaging [address] [place] [address] System, Provider Not In, [place] [address] Social History Tobacco Use Types Packs/Day Years [...] PACS storage only and not for interpretation. us Provider Not In System PhD IMG OUTSIDE IMAGING W /OUT INTERPRETATION Final Result documented in this encounter Visit Diagnoses Not on filedocumented in this encounter Care Teams Internal Medicine Physician Relationship Specialty Start Date End Date Pilar Aviles MD [address] [place] [phone] PCP - General 08/13/17 documented as of this encounter Additional Source Comments The information contained in this document represents components of the legal health record. It is not the complete legal health record.[facility]
--- OUTSIDE RECORDS SUMMARY | 2025-05-17 08:18 | XMS_ITS | Encounter Summary ---
Author Organization [facility] Address [address] [place] [address] [place] [phone] Phone Care Team Providers Care User Experience Developer Name Role Phone Pilar Aviles MD Primary Care Provider Encounter Details Date Type Department Care Team (Late st Contact Info) Description 11/04/2021 Ancillary Orders [facility],Outside Imaging [address] [place] [address] System, Provider [place] In, [place] [address] Social History Tobacco Use Types Packs/Day Years [...] on filedocumented in this encounter Care Teams User Experience Developer Relationship Specialty Start Date End Date Pilar Aviles MD [address] [place] [phone] PCP - General 08/13/17 documented as of this encounter Additional Source Comments The information contained in this document represents components of the legal health record. It is not the complete legal health record.[facility]
== END 2025-05-17 09:00 | disposition home or self-care (01) ==
LOC: HO.RHES 08:07
PROVIDERS: PCP Family Medicine; Visit Provider Internal Medicine Rheumatology
DX: M18.11 Unilateral primary osteoarthritis of first carpometacarpal joint, right hand (principal); I73.00 Raynaud's syndrome without gangrene
CPT/HCPCS: 99213; G2211